=== PATIENT | male | born 1950 | race Caucasian/White ===

== ENCOUNTER 2019-06-12 16:21 | Inpatient (IN) | payer MEDICARE ==
[~2019-06-12] VITALS: Ht 167.6 cm; Wt 79.7 kg
[2019-06-12 16:53] LABS: Source, Urine Voided
[2019-06-12] MEDS ORDERED: VENL25 (16:53)
[2019-06-12] MEDS ORDERED: Lisinopril2.5 MG (16:53)
[2019-06-12] MEDS ORDERED: ALLO100 (16:53)
[2019-06-12] MEDS ORDERED: AMLO10 (16:53)
[2019-06-12] MEDS ORDERED: METO25ER (16:53)
[2019-06-12] MEDS ORDERED: BUSP5 (16:53)
[2019-06-12 16:54] LABS: Hematocrit 48.2 % (37.0-53.0); Hemoglobin 17.1 g/dL (13.5-17.5); Mean Corpuscular HGB 32.3 pg (26.0-34.0); Mean Corpuscular HGB Conc 35.5 g/dL (31.5-36.5); Mean Corpuscular Volume 91 fL (80-100); Mean Platelet Volume 9.5 fL (9.1-12.4); Platelet Count 477 K/mm3 (150-400); RDW Coefficient Variation 12.9 % (11.7-14.2); RDW Standard Deviation 42.3 fL (35.1-46.3); Red Blood Cell Count 5.29 M/mm3 (4.30-5.90); White Blood Cell Count 31.72 K/mm3 (4.00-11.30)
[2019-06-12 16:56] LABS: Bilirubin, Urine Neg (Neg); Blood, Urine 4+ (Neg); Glucose Qualitative, Urine 2+ (Neg); Ketones, Urine Neg (Neg); Leukocyte Esterase, Urine 1+ (Neg); Nitrite, Urine Neg (Neg); Protein, Urine 4+ (Neg); Urobilinogen, Urine NORM (Normal)
[2019-06-12 17:03] LABS: Appearance, Urine Clear (Clear); Color, Urine Yellow (P-Yellow)
[2019-06-12 17:05] LABS: Bacteria Mod /hpf; Squamous Epithelial Cells Rare /hpf (Few); Transitional Epithelial Cells Few /hpf (0-Rare)
[2019-06-12 17:08] LABS: International Normalized Ratio 1.07; Prothrombin Time Results 11.4 Sec (9.7-11.5)
[2019-06-12 17:19] LABS: BASOPHILS PERCENT MAN 0 % (0-2); EOSINOPHILS PERCENT MAN 0 % (0-6); LYMPHOCYTES PERCENT MAN 6 % (21-46); MONOCYTES ABSOLUTE MAN 2.53 K/mm3 (0.16-1.47); MONOCYTES PERCENT MAN 8 % (4-13); NEUTROPHILS ABSOLUTE MAN 27.27 K/mm3 (1.96-9.15); SEG NEUTROPHILS PERCENT MAN 86 % (41-73); TOTAL CELLS COUNTED 100
[2019-06-12 17:20] LABS: U Amphetamine Screen Not Detected; U Barbituate Screen Not Detected; U Benzodiazapine Screen Not Detected; U Buprenorphine Screen Not Detected; U Cannabinoids Screen DETECTED; U Cocaine Screen Not Detected; U Methadone Screen Not Detected; U Methamphetamine Screen Not Detected; U Opiates Screen Not Detected; U Oxycodone Screen Not Detected; U Phencyclidine Screen Not Detected; U Propoxyphene Screen Not Detected
[2019-06-12 17:26] LABS: Magnesium, Blood 1.6 mg/dL (1.6-2.4); Troponin I 0.386 ng/mL (0.000-0.040)
[2019-06-12 17:44] LABS: Alanine Aminotransfer (ALT/SGP 59 U/L (12-78); Albumin, Blood 4.3 g/dL (3.4-5.0); Alk Phos 107 U/L (50-136); Anion Gap 11 mmol/L (6-16); Aspartate Aminotrans (AST/SGOT 135 U/L (12-37); Bilirubin, Total 0.8 mg/dL (0.1-1.0); Blood Urea Nitrogen 40 mg/dL (8-24); Bun/Creatinine Ratio 35.7 (12.0-20.0); CO2, Blood 23 mmol/L (21-32); Chloride, Blood 96 mmol/L (98-108); Creatinine, Blood 1.12 mg/dL (0.60-1.20); Globulin, Blood 4.3 g/dL (2.2-4.0); Glomerular Filtration Rate >60 (60-); Glucose, Blood 313 mg/dL (70-99); Sodium, Blood 130 mmol/L (136-145); Total Protein, Blood 8.6 g/dL (6.4-8.2)
[2019-06-12 17:54] LABS: Ethanol (Alcohol), Blood, Med <3 mg/dL
[2019-06-12] MEDS ORDERED: Buspirone HCl7.5 MG PO (18:38)
[2019-06-12] MEDS ORDERED: ZYLOPRIM PO (18:38)
[2019-06-12] MEDS ORDERED: AMLODIPINE BESY10 MG PO (18:38)
[2019-06-12] MEDS ORDERED: METO100ER PO (18:39)
[2019-06-12] MEDS ORDERED: ZESTRIL40 M2 PO (18:39)
[2019-06-12] MEDS ORDERED: Metformin HCl1000 MG PO (18:40)
[2019-06-12] MEDS ORDERED: VENLAFAXINE HC225 MG PO (18:40)
[2019-06-12] MEDS ORDERED: Venlafaxine HCl75 MG PO (18:41)
[2019-06-12 18:59] LABS: Appearance, CSF Clear (Clear); Color, CSF No Color (No Color); RBC Count, CSF 0 /mm3 (0-0); WBC Count, CSF 1 /mm3 (0-5)
[2019-06-12 19:10] LABS: Glucose, CSF 159 mg/dL (40-70)
[2019-06-12 19:30] LABS: Monocytes, CSF 100 % (15-45)
[2019-06-12 19:38] LABS: WBC Count, CSF 1 /mm3 (0-5)
[2019-06-12 19:39] LABS: Appearance, CSF Clear (Clear); Color, CSF No Color (No Color); RBC Count, CSF 1 /mm3 (0-0)
[2019-06-12 20:10] LABS: Cryptococcus Neoformans/Gattii Not Detected (NOT DETECT); Enterovirus Not Detected (NOT DETECT); Escherichia Coli K1 Not Detected (NOT DETECT); Haemophilus Influenza Not Detected (NOT DETECT); Herpes Simplex Virus 1 Not Detected (NOT DETECT); Herpes Simplex Virus 2 Not Detected (NOT DETECT); Human Herpesvirus 6 Not Detected (NOT DETECT); Human Parechovirus Not Detected (NOT DETECT); Listeria Monocytogenes Not Detected (NOT DETECT); Neisseria Meningitidis Not Detected (NOT DETECT); Streptococcus Agalactiae Not Detected (NOT DETECT); Streptococcus Pneumoniae Not Detected (NOT DETECT); Varicella Zoster Virus Not Detected (NOT DETECT)
[2019-06-12 21:52] LABS: Free Thyroxine 0.94 ng/dL (0.70-1.60)
[2019-06-12 21:54] LABS: Salicylate 9.7 mg/dL (2.8-20.0)
[2019-06-12 21:55] LABS: Thyroid Stimulating Hormone 1.56 uIU/mL (0.360-4.800)
[2019-06-12 22:03] LABS: Acetaminophen, Random <2.0 ug/mL (10.0-30.0)
--- NOTE | 2019-06-13 01:07 | NUR ---
PT TO ICU 5 FROM ER AT 2215. PT ARRIVES UNRESPONSIVE WITH LOUD SNORE ON ATIVAN GTT AT 6 MG/HR. PT DIAPHORETIC WITH VISIBLE TREMORS. HR IN 140'S-150'S. PT TRANSFERRED TO ICU BED WITH SLIDER SHEET, PT CONTINUES TO BE UNRESPONSIVE, NO GAG/COUGH WITH YANKAUER. PUPILS 3 MM/SLUGGISH. PERFORMED JAW THRUST, PT'S SNORING DECREASED. ATIVAN GTT IMMEDIATELY PLACED ON STANDBY UPON ARRIVAL. SAT PATIENT UP TO 45+ DEGREES AND CONTACTED DR. SEGAL. DR. SEGAL AT BEDSIDE @2759 TO REASSESS PATIENT. ED DOCTOR REQUESTED TO ASSESS AND POSSIBLY INTUBATE PATIENT. PT HAD MINIMAL RESPONSE TO PAINFUL STIMULI AND HAD VERY MINIMAL GAG WITH TONGUE DEPRESSOR. ORDER TO HOLD OFF ADMINISTERING ANY MEDICATIONS AND CLOSELY MONITOR PT'S ABILITY TO MAINTAIN AIRWAY AND ETOH WITHDRAWAL SYMPTOMS. BED IN LOW LOCKED POSITION, CURTAIN/DOOR OPEN AND BED ALARM ON. SEE FULL ADMISSION ASSESSMENT
--- NOTE | 2019-06-13 02:34 | NUR ---
PT CONTINUES TO BE MINIMALLY RESPONSIVE TO PAINFUL STIMULI, NO RESPONSE TO VERBAL STIMULUS. BLOOD PRESSURE STABLE WITH SBP 110-115. REMAINS TACHYCARDIC WITH HR UP TO 150. CALL PLACED TO DR. SEGAL, ORDER FOR 5 MG METOPROLOL.
--- NOTE | 2019-06-13 03:08 | NUR ---
PT'S NOW IN NSR WITH HR 61. ORDER FOR 5 MG METOPROLOL IV Q4 FOR HR>120.
[2019-06-13 03:47] LABS: Hematocrit 43.7 % (37.0-53.0); Hemoglobin 15.1 g/dL (13.5-17.5); Mean Corpuscular HGB 32.2 pg (26.0-34.0); Mean Corpuscular HGB Conc 34.6 g/dL (31.5-36.5); Mean Corpuscular Volume 93 fL (80-100); Mean Platelet Volume 9.6 fL (9.1-12.4); Platelet Count 389 K/mm3 (150-400); RDW Coefficient Variation 13.2 % (11.7-14.2); RDW Standard Deviation 44.4 fL (35.1-46.3); Red Blood Cell Count 4.69 M/mm3 (4.30-5.90); White Blood Cell Count 27.26 K/mm3 (4.00-11.30)
[2019-06-13 04:10] LABS: Troponin I 0.361 ng/mL (0.000-0.040)
[2019-06-13 04:27] LABS: Alanine Aminotransfer (ALT/SGP 50 U/L (12-78); Albumin, Blood 3.5 g/dL (3.4-5.0); Alk Phos 81 U/L (50-136); Anion Gap 4 mmol/L (6-16); Aspartate Aminotrans (AST/SGOT 93 U/L (12-37); Bilirubin, Total 0.6 mg/dL (0.1-1.0); Blood Urea Nitrogen 35 mg/dL (8-24); Bun/Creatinine Ratio 32.7 (12.0-20.0); CO2, Blood 26 mmol/L (21-32); Calcium, Blood 11.8 mg/dL (8.5-10.1); Chloride, Blood 107 mmol/L (98-108); Creatinine, Blood 1.07 mg/dL (0.60-1.20); Globulin, Blood 3.4 g/dL (2.2-4.0); Glomerular Filtration Rate >60 (60-); Glucose, Blood 188 mg/dL (70-99); Sodium, Blood 137 mmol/L (136-145); Total Protein, Blood 6.9 g/dL (6.4-8.2)
--- NOTE | 2019-06-13 06:10 | NUR ---
SHIFT SUMMARY PT MOVES ALL EXTREMETIES, SLIGHT WITHDRAW FROM PAINFUL STIMULUS, NO RESPONSE TO VERBAL STIMULUS. PT NOT DIAPHORETIC AT THIS TIME, VISIBLY TREMULOUS. CIWA 3. HR CURRENTLY SINUS TACH 100-115. PT TREATED WITH HYDRALAZINE FOR HYPERTENSION PER EMAR. WILL REPORT TO DAYSHIFT NURSE.
--- NOTE | 2019-06-13 17:21 | NUR ---
SHIFT SUMMARY PT HAS REMAINED SEDATED WITH PRECEDEX SINCE BEGINNING OF THE SHIFT. PRECEDEX TITRATED BETWEEN 0.5-0.7 MCG/KG/MIN. PT CONTINUES TO MOAN OUT TO NOXIOUS STIMULI AND VERBAL STIMULI, BUT IS UNABLE TO SPEAK IN FULL WORDS. PT IS RESTLESS IN BED. VITAL SIGNS STABLE, PT ON ROOM AIR. NS INFUSING AT 100 ML/HR. SOUSA IN PLACE WITH BRIGHT YELLOW URINE OUTPUT NOTED. WILL CONTINUE TO MONITOR AND REPORT OFF TO ONCOMING RN.
--- NOTE | 2019-06-13 21:30 | NUR ---
ASSUMPTION OF CARE PT SLEEPING IN BED, AROUSES TO VERBAL STIMULI, DOES NOT OPEN EYES, SAYS "WHAT?" TO NAME, DOES NOT ANSWER QUESTIONS/MUMBLES INCOHERENTLY. PT VERY AGITATED WITH NURSING CARE, PT OTHERWISE RESTLESS IN BED, AT TIMES PULLING AT LINES/TUBES AND PLACING HANDS IN ATTENDS, BILAT WRIST RESTRAINTS PLACED TO PROTECT TUBES/LINES/CORDS. PT MAINTAIN O2 SATURATIONS>92% ON RA, MONITOR SHOWS SINUS RHYTHM WITH HR 80-90'S. PT MOVES ALL EXTREMETIES AND REPOSITIONS SELF IN BED. SOUSA REMAINS IN PLACE AND DRAINING YELLOW URINE. CIWA ASSESSMENTS DIFFICULT DUE TO PTS MENTATION, PT WITH TREMORS, PERSPERATION, CONFUSION, AND AGITATION, PRN ATIVAL PROVIDED AND PRECEDEX INFUSING AT 0.7 (SEE FLOWSHEET).
--- NOTE | 2019-06-13 23:54 | NUR ---
PT WITH INCREASED AGITATION, KICKING LEGS OFF BED, GETTING FEET CAUGHT IN SOUSA, RISK FOR PULLING SOUSA OUT, PT VERY RESISTANT TO NURSING CARE. ORDER FOR SOFT RESTRAINTS x4 EXTREMETIES PLACED. ATIVAN PROVIDED (SEE MAR)
[2019-06-14 03:27] LABS: BASOPHILS ABSOLUTE AUTO 0.07 K/mm3 (0.00-0.23); BASOPHILS PERCENT AUTO 0 % (0-2); EOSINOPHILS ABSOLUTE AUTO 0.06 K/mm3 (0.00-0.68); EOSINOPHILS PERCENT AUTO 0 % (0-6); Hematocrit 38.9 % (37.0-53.0); Hemoglobin 13.3 g/dL (13.5-17.5); IMMATURE GRAN ABSOLUTE AUTO 0.07 K/mm3 (0.00-0.10); IMMATURE GRAN PERCENT AUTO 0 % (0-1); LYMPHOCYTES ABSOLUTE AUTO 2.11 K/mm3 (0.84-5.20); LYMPHOCYTES PERCENT AUTO 11 % (21-46); MONOCYTES ABSOLUTE AUTO 2.14 K/mm3 (0.16-1.47); MONOCYTES PERCENT AUTO 12 % (4-13); Mean Corpuscular HGB Conc 34.2 g/dL (31.5-36.5); Mean Corpuscular Volume 94 fL (80-100); Mean Platelet Volume 9.5 fL (9.1-12.4); NEUTROPHILS ABSOLUTE AUTO 14.21 K/mm3 (1.96-9.15); NEUTROPHILS PERCENT AUTO 76 % (41-73); Platelet Count 334 K/mm3 (150-400); RDW Coefficient Variation 13.4 % (11.7-14.2); Red Blood Cell Count 4.15 M/mm3 (4.30-5.90); White Blood Cell Count 18.66 K/mm3 (4.00-11.30)
[2019-06-14 03:58] LABS: CPK Creatine Kinase 1052 U/L (39-308)
[2019-06-14 03:59] LABS: Albumin, Blood 3.3 g/dL (3.4-5.0); Anion Gap 5 mmol/L (6-16); Blood Urea Nitrogen 29 mg/dL (8-24); Bun/Creatinine Ratio 29.4 (12.0-20.0); CO2, Blood 23 mmol/L (21-32); Calcium, Blood 10.8 mg/dL (8.5-10.1); Chloride, Blood 119 mmol/L (98-108); Creatinine, Blood 0.99 mg/dL (0.60-1.20); Glomerular Filtration Rate >60 (60-); Glucose, Blood 124 mg/dL (70-99); Phosphorus, Blood 2.1 mg/dL (2.5-4.9); Potassium, Blood 3.1 mmol/L (3.5-5.5); Sodium, Blood 147 mmol/L (136-145)
[2019-06-14 06:00] LABS: PCO2 Arterial 46.7 mmHg (35-45); PO2 Arterial 104 mmHg (80-100)
--- NOTE | 2019-06-14 07:15 | NUR ---
ASSUMED CARE BEDSIDE REPORT RECIEVED. PT IS INTUBATED AND SEDATED. VENT SETTINGS AC 14, TV 400, PEEP 5, FIO2 70%. PT IS SEDATED WITH PROPOFOL AT 20 MCG/KG/MIN AND PRECEDEX AT 0.7 MCG/KG/MIN. PT IS HYPOTENSIVE WITH SBP 60'S. PRECEDEX PLACED ON STANDBY AT THIS TIME. OGT PLACED AT THIS TIME AND PLACED TO LIS. BILE OUTPUT NOTED. SOUSA IN PLACE DRAINING YELLOW URINE. SBW RESTRAINTS IN PLACE. WILL CONTINUE TO MONITOR.
--- NOTE | 2019-06-14 07:16 | NUR ---
RESPIRATORY ARREST/SHIFT SUMMARY CALL PALCED TO DR SEGAL @ APPROX 0430 REGARDING PTS CONTINUED RESTLESS AND AGITATION ON 0.7 PRECEDEX AND PRN ATIVAN Q2H, MORNING LABS SHOWED LOW POTASSIUM AND PHOSPHOROUS, HIGH SODIUM, SEE NEW ORDERS. PRECEDEX TITRATED TO 1.0. THIS RN TO PTS ROOM, O2 SATS ALARMING IN THE 80'S BUT WITH POOR WAVEFORM, WOB INCREASED, HR INCREASED TO 140'S AND LIPS AND FACE BLUE/PURPLE DISCOLORATION, PULSES PRESENT, BMV INITIATED @ 0457, CODE ALARM PULLED, PRECEDEX PLACED ON SB, CODE TEAM ARRIVED AND PT INTUBATED @ 0504, CXR ORDERED AND COMPLETED (SEE CODE BLUE SHEET IN CHART) 7.5 ETT, 25 CM AT THE TEETH, VENT SET TO AC 14/400/5/70%, MODERATE AMOUNT OF DARK BROWN SECRETIONS FROM ETT. PRECEDEX RESTARTED @ 0.7 AND PROPOFOL @ 20 (SEE FLOWSHEET).
--- NOTE | 2019-06-14 10:17 | NUR ---
VENT SETTING CHANGE 0940 DR NEGRO CHANGED PT TO PS 10/5, FIO2 40%. PT TOLERATING WELL. PT NOT RESPONDING TO COMMANDS, BUT DOES WITHDRAW TO NOXIOUS STIMULI. BP IMPROVED AT THIS TIME. WILL CONTINUE TO MONITOR.
--- NOTE | 2019-06-14 10:50 | NUR ---
AC PT RESTLESS AND THRASHING IN BED. PROPOFOL INCREASED TO 30 MCG/KG/MIN AND PT CHANGED BACK TO ASSIST CONTROL WITH PREVIOUS SETTINGS.
--- NOTE | 2019-06-14 18:13 | NUR ---
SHIFT SUMMARY PT REMAINS INTUBATED AND SEDATED. PT BP AND LEVEL OF SEDATION HAS BEEN LABILE THROUHGHOUT THE SHIFT. PT QUICKLY ESCALATES FROM RESTING QUIETLY TO THRASHING AROUND IN BED WITH MINOR TITRATIONS OF PRECEDEX AND PROPOFOL. SBP HAS RANGED FROM 60-180'S THROUGHOUT THE DAY. DR NEGRO HAS BEEN AWARE OF VS TRENDS. PT CURRENTLY SEDATED WITH PRECEDEX AT 0.7 MCG/KG/MIN AND PROPOFOL AT 30 MCG/KG/MIN. D5 1/2 NS INFUSING AT 75 ML/HR AND NS TKO. VENT SETTINGS AC 16, TV 400, PEEP 5, FIO2 35%. OGT IN PLACE WITH TF AT 20 ML/HR. SOUSA IN PLACE WITH YELLOW URINE OUTPUT NOTED. SBW RESTRAINTS IN PLACE. WILL CONTINUE TO MONITOR AND REPORT OFF TO ONCOMING RN.
[2019-06-14 20:41] LABS: Vancomycin, Random 9.7 ug/mL
--- NOTE | 2019-06-14 21:00 | NUR ---
ASSUMPTION OF CARE ASSUMED CARE OF PT @ 1900, PT INTUBATED AND SEDATION, WITHDRAWS FROM PAINFUL STIMULI, RESTLESS IN BED, MOVING ALL EXTREMETIES, DOES NOT FOLLOW COMMANDS. VENT SET TO AC 16/400/5/35%, RR 20'S, TV 400'S, SMALL AMOUNT OF CLEAR TO WHITE SPUTUM FROM ETT. PROPOFOL AND PRECEDEX FREQUENTLY TITRATED TO ACHEIVE ADEQUATE SEDATION VS TOLERATED, HR AND BP VERY LABILE (SEE FLOWSHEET AND VITAL SIGNS) TF IN PLACE INF 20ml/hr. SOUSA IN PLACE DRAINING YELLOW URINE.
[2019-06-15 03:38] LABS: Calcium, Blood 9.7 mg/dL (8.5-10.1); Creatinine, Blood 1.29 mg/dL (0.60-1.20); Magnesium, Blood 1.8 mg/dL (1.6-2.4); Phosphorus, Blood 2.6 mg/dL (2.5-4.9); Potassium, Blood 3.4 mmol/L (3.5-5.5)
--- NOTE | 2019-06-15 07:38 | NUR ---
SHIFT SUMMARY PT REMAINS INTUBATED AND SEDATED, ADEQUATE SEDATION DIFFICULT TO ACHEIVE DUE TO VS, VENT SET TO AC 16/400/5/35%. PT WITHDRAWS FROM PAINFUL STIMULI, BECOMES VERY AGITATED WITH NURSING CARE. MONITOR SHOWS VERY LABILE HR OF 49-70'S, LENA BURKS NOTED THIS SHIFT (SEE RHYTHM STRIP) BP VERY LABILE WITH SBP 80-190'S WITH MAPS 50'S-120'S. DOPAMINE STARTED THIS SHIFT FOR HR AND BP SUPPORT, CURRENTLY ON STAND BY. TF INFUSING @ 30ml/hr, LOW RESIDUALS, 1 BM THIS SHIFT. SOUSA IN PLACE DRAINING YELLOW URINE. CALL PLACED TO DR NEGRO THIS SHIFT REGARDING SODIUM LEVEL, D5 1/2NS INCREASED TO 100ml/hr, UPDATED DR NEGRO ON LOW BP AND HR, DOPAMINE ORDERED. POTASSIUM 3.4 WITH MORNING LABS, 40meq OF KCL ORDERED PER ELECTROLYTE PROTOCOL.
--- NOTE | 2019-06-15 08:29 | NUR ---
CARE ASSUMED REPORT RECEIVED, CARE ASSUMED AT 0700 FROM DUNCAN ORTEZ. PT INTUBATED, SEDATED WITH PROPOFOL AND PRECEDEX, BUT AGITATED, MOVING HEAD BACK AND FORTH, MOVING ALL EXTREMITIES AROUND IN BED. BILAT WRIST RESTRAINTS FOR SAFETY. IV'S RED AND LEAKING, SEE VASCULAR ACCESS ASSESSMENT. PT NOT REQUIRING VASOPRESSORS AT THIS TIME, BUT DID EARLIER THIS MORNING. BP LABILE PER APPLICATIONS CONSULTANT RN. HR ALSO LABILE. INITIAL ASSESSMENT REVEALED SINUS RATE IN 70'S, BUT AT THIS TIME CRYS WITH FREQUENT PVC'S. PRECEDEX OFF FOR THIS REASON. SPOKE WITH DR. REGAN REGARDING LABILE HR, BP AND VASCULAR ACCESS. ORDER FOR PICC LINE. SPOKE WITH PT'S NEXT OF KIN LISTED, HEMALATHA. PROVIDED WITH UPDATED. PER HEMALATHA, HE IS NOT MEDICAL POWER OF BARREL LEVELER. CONSENT FOR PICC PLACEMENT MEDICAL NECESSESITY. DUNCAN PATINO TO BEDSIDE TO PLACE PICC LINE. SINCE ASSUMING CARE, PROPOFOL TITRATED UP AND PT ADEQUATELY SEDATED AT THIS TIME. PT HAD BOWEL MOVEMENT, PT TOLERATED ADL WELL.
--- NOTE | 2019-06-15 09:28 | NUR ---
UPDATE PICC LINE INSERTED AND VERIFIED PER DUNCAN PATINO. DR. REGAN TO BEDSIDE FOR ASSESSMENT. DISCUSSED HR/BP. PER DR. REGAN, TITRATE PROPOFOL DOWN AND TURN PRECEDEX BACK ON. DOPAMIN CONTINUES TO BE ON STANDBY IF NEEDED.
--- NOTE | 2019-06-15 15:20 | NUR ---
SEDATION VACATION DR. REGAN IN AND OUT THROUGHOUT MORNING AND AFTERNOON, REQUESTING SEDATION BE CHANGED. SEE FLOWSHEET. AT ONE POINT PT OFF PROPOFOL, ON 1.4 PRECEDEX AND GETTING IV PUSHES OF LORAZEPAM. THROUGHOUT PROCESS PT HAS BEEN INTERMITTENTLY AGITATED, PULLING ON RESTRAINTS, SCOOTING DOWN IN BED, SHAKING HEAD BACK AND FORTH, ATTEMPTING TO REACH FOR TUBE. PT NOT FOLLOWING ANY COMMANDS. OPENS EYES A FEW TIMES BUT NOT TRACKING AND DOES NOT OPEN THEM ON COMMAND. THIS AFTERNOON, PER DR. REGAN, OK TO RESEDATE WITH PROPOFOL AND ATTEMPTED SEDATION VACATION AGAIN TOMORROW.
--- NOTE | 2019-06-15 19:02 | NUR ---
SUMMARY SINCE RE-SEDATING PT, PT HAS BEEN CALM, TOLERATING ADL'S. CONTINUES TO COUGH AND REACH FOR TUBE TURNING TURNS, BUT NOT THRASHING HEAD, ARM AND LEGS AROUND HE WAS PREVIOUSLY. BP BORDERLINE HYPOTENSIVE, BUT MAPS MAINTAINING 65 AND GREATER. SINCE RESEDATING, HR HAS BEEN 40'S-50'S. TITRATED PRECEDEX DOWN TO MANAGE THIS. PT LEFT ON PRESSURE SUPPORT PER DR. REGAN ORDER, TIDAL VOLUMES MAINTAINGING IN 400'S, RR 20'S. PT NOT FOLLOWING ANY COMMANDS FOR DURATION OF SHIFT. ABD SOFT, HYPOACTIVE BOWEL SOUNDS. TOLERATING TUBE FEEDING WITH MINIMAL RESIDUALS. BOWEL MOVEMENT TODAY. GOOD URINE OUTPUT FROM SOUSA. BILAT WRIST RESTRAINTS FOR SAFETY. REPORT TO DUNCAN COCHRAN TO ASSUME CARE AT THIS TIME.
--- NOTE | 2019-06-15 20:44 | NUR ---
ASSUMED PT CARE FROM DUNCAN FABIAN AT 1915 PT INTUBATED AND SEDATED. PROPOFOL AT 40MCG/KG/MIN. PRECEDEX AT 0.5 MCG/KG/HR. VENT SETTINGS: SPONTANEOUS WITH PRESSURE SUPPORT 5/5; FIO2 21%. HR 40'S WITH STABLE BP'S; SEE FLOWSHEET. PIVOT 1.5 INFUSING AT GOAL OF 40CC/HR. SOUSA CATHETER IS PATENT AND DRAINING CLEAR, YELLOW URINE TO GRAVITY. UNABLE TO ASSESS CIWA'S AT THIS TIME D/T INTUBATION/SEDATION. PER REPORT PT WAS AGITATED MOST OF DAY AND IS CURRENTLY COMFORTABLE AND RESTING QUIETLY. WILL PERFORM SEDATION VACATION TOWARD END OF SHIFT; HOWEVER, WILL TITRATE SEDATIVE MEDICATIONS ACCORDING TO RIKERS SEDATION-AGITATION SCALE. BEDSIDE REPORT GIVEN. PT APPEARS COMFORTABLE AT THIS TIME.
--- NOTE | 2019-06-15 23:47 | NUR ---
REASSESSMENT TITRATED PROPOFOL FROM 40MCG/KG/MIN SLOWLY TO 30MCG/KG/MIN. PT REMAINED QUIET AND APPEARED COMFORTABLE UNTIL DISTURBED FOR BED BATH. PT BECAME VERY AGITATED. THRASHING HEAD BACK AND FORTH IN BED. OPENED EYES TO VERBAL STIMULI; HOWEVER, DID NOT FOLLOW ANY COMMANDS. NOTED TO WITHDRAWAL FROM ANY NOXIOUS STIMULI. MOVING ALL EXTREMITIES IN BED. ATTEMPTED TO DIM LIGHTS IN ROOM AND DECREASE STIMULI; HOWEVER, PT CONTINUES TO THRASH HEAD BACK AND FORTH WITH INCREASED BP AND HR FROM 40'S TO 50'S. TITRATED PROPOFOL BACK TO 35MCG/KG/MIN.
[2019-06-16 03:25] LABS: BASOPHILS ABSOLUTE AUTO 0.07 K/mm3 (0.00-0.23); BASOPHILS PERCENT AUTO 1 % (0-2); EOSINOPHILS ABSOLUTE AUTO 0.43 K/mm3 (0.00-0.68); EOSINOPHILS PERCENT AUTO 5 % (0-6); Hematocrit 32.1 % (37.0-53.0); Hemoglobin 10.6 g/dL (13.5-17.5); IMMATURE GRAN ABSOLUTE AUTO 0.04 K/mm3 (0.00-0.10); IMMATURE GRAN PERCENT AUTO 0 % (0-1); LYMPHOCYTES ABSOLUTE AUTO 2.15 K/mm3 (0.84-5.20); LYMPHOCYTES PERCENT AUTO 24 % (21-46); MONOCYTES ABSOLUTE AUTO 0.87 K/mm3 (0.16-1.47); MONOCYTES PERCENT AUTO 10 % (4-13); Mean Corpuscular HGB 32.4 pg (26.0-34.0); NEUTROPHILS PERCENT AUTO 61 % (41-73); Platelet Count 278 K/mm3 (150-400); RDW Coefficient Variation 13.8 % (11.7-14.2); RDW Standard Deviation 50.1 fL (35.1-46.3); Red Blood Cell Count 3.27 M/mm3 (4.30-5.90); White Blood Cell Count 9.16 K/mm3 (4.00-11.30)
[2019-06-16 03:26] LABS: Mean Corpuscular Volume 98 fL (80-100)
[2019-06-16 03:40] LABS: Albumin, Blood 2.5 g/dL (3.4-5.0); Anion Gap 4 mmol/L (6-16); Blood Urea Nitrogen 28 mg/dL (8-24); Bun/Creatinine Ratio 29.4 (12.0-20.0); CO2, Blood 22 mmol/L (21-32); Calcium, Blood 8.8 mg/dL (8.5-10.1); Chloride, Blood 126 mmol/L (98-108); Creatinine, Blood 0.95 mg/dL (0.60-1.20); Glomerular Filtration Rate >60 (60-); Glucose, Blood 124 mg/dL (70-99); Magnesium, Blood 1.9 mg/dL (1.6-2.4); Phosphorus, Blood 2.1 mg/dL (2.5-4.9); Potassium, Blood 3.2 mmol/L (3.5-5.5); Sodium, Blood 152 mmol/L (136-145)
--- NOTE | 2019-06-16 07:25 | NUR ---
END OF SHIFT SUMMARY PT HAS REMAINED ON SPONTANEOUS WITH PRESSURE SUPPORT 5/5; FIO2 21%. TITRATED PROPOFOL DOWN TO 25MCG/KG/MIN AND PRECEDEX TO 1.4 MCG/KG/HR. HR REMAINS LOW 40'S; HOWEVER, BP'S STABLE. SEE FLOWSHEET. ATTEMPTED SEDATION VACATION WITH TURNING PROPOFOL DOWN TO 20MCG/KG/MIN; HOWEVER, PT THRASHING HEAD BACK AND FORTH IN BED, WOULD NOT OPEN EYES TO VERBAL STIMULI. HOWEVER, WHEN ASSESSING PUPILS, PT TRACKED HIS EYES TO LOCATE ME. DID NOT FOLLOW ANY COMMANDS. CONTINUED TO MOVE ALL EXTREMITIES AND THRASH HEAD BACK AND FORTH IN BED. TITRATED PROPOFOL BACK TO 25MCG/KG/MIN. PT APPEARS COMFORTABLE AT THIS TIME. BP'S TEND TO FLUCTUATE WITH AGITATION AND SEDATION, BUT REMAIN STABLE. DOPAMINE REMAINED ON STANDBY T/O SHIFT. PT NOTED TO BE BRADYCARDIC MOST OF SHIFT; HOWEVER, HR REMAINED ABOVE 40. LUNG SOUNDS HAVE REMAINED CLEAR T/O ALL LOBES; MODERATE AMOUNTS OF THIN, CLEAR SECRETIONS SUCTIONED FROM ETT. PIVOT 1.5 INFUSING AT GOAL OF 40CC/HR; MINIMAL RESIDUALS NOTED. SOUSA CATH REMAINS PATENT AND DRAINING CLEAR YELLOW URINE TO GRAVITY. REPORT GIVEN TO DUNCAN NIELSEN.
--- NOTE | 2019-06-16 08:35 | NUR ---
ASSESSMENT- PT RESTLESS, KICKING LEG OFF BED, REPOSITIONED, AGITATED WITH ANY STIMULUS. PRECEDEX GTT AT 1.4 MCG/KG/HR, PROPOFOL AT 35 MCG/KG/MIN. REPOSITIONED, TURNED AND NOW QUIET AFTER REPOSITIONING. PERRL, ORALLY INTUBATED, TOLERATING VENT-SPONTANEOUS SETTINGS, PS 5 PEEP 5 TIDAL VOLUMES 400'S. LUNGS CLEAR, SUCTIONED SCANT CLEAR SECRETIONS. APICAL REGULAR, SINUS CRYS, DID HAVE RUN OF BIJEMINY-RESOLVED SPONTANEOUSLY. BP STABLE. EXTUBATION RISK-DOESN'T FOLLOW COMMANDS, DOES MOVE ALL EXTREMITIES. BILATERAL WRIST RESTRAINTS ON. D5 1/2 NS AT 100 CC/HR. MAGNESIUM REPLACEMENT STARTED. KPHOS TO START. ABDOMEN SOFT, TUBE FEEDING VIA OGT PIVOT 1.5 AT GOAL 40 CC/HR, RESIDUAL 100 CC REPLACED. FREE WATER 300 CC/Q 6HR. SODIUM ELEVATED. UO VIA SOUSA ADEQUATE. LASIX ORDERED POSITIVE FLUID BALANCE. SCDS APPLIED PER ORDER. BRUISED AREA AND SKIN TEAR LEFT WRIST-MEPILEX APPLIED. MEPILEX ON COCCYX INTACT.
--- NOTE | 2019-06-16 09:55 | NUR ---
DR. REGAN HERE-ASSESSED PT. PROPOFOL OFF, NOW RESTLESS AND AGITATED. RX WITH IV VALIUM. STILL MOVING HEAD SIDE TO SIDE. DID LOOK AT PHYSICIAN WHEN ASKED, QUESTION FOLLOW SOME COMMANDS. PLANS TO EXTUBATE. CONTINUE PRECEDEX.
--- NOTE | 2019-06-16 10:12 | NUR ---
TUBE FEED OFF, RESIDUAL 10 CC DISCARDED. EXTUBATED TO NASAL CANNULA WITHOUT PROBLEMS. SATURATIONS STABLE HEARTRATE 50'S. RESPIRATIONS UNLABORED. LUNGS CLEAR POST EXTUBATION. NOT PULLING AT LINES. WRIST RESTRAINTS OFF
--- NOTE | 2019-06-16 10:45 | NUR ---
DR. REGAN AT BEDSIDE. PT ABLE TO ANSWER QUESTIONS REGARDING HIS NAME, DISORIENTED TO PLACE AND DATE. COOPERATIVE BUT RESTLESS IN BED. CIWA 7
--- NOTE | 2019-06-16 11:57 | NUR ---
PT REMAINS RESTLESS BUT COOPERATIVE. REPOSITIONED FREQUENTLY. DR. REGAN HERE-UPDATED. RX FOR HYPERTENSION
--- NOTE | 2019-06-16 12:58 | NUR ---
INCREASING RESTLESSNESS, ATTEMPT TO HIT STAFF. NOTIFIED PHYSICIAN. RX WITH ATIVAN. MULTIPLE REASSURANCES TO PT. REPOSITIONED FOR COMFORT. CLOSELY MONITORED WITH RN AT BEDSIDE. BED ALARM ON
--- NOTE | 2019-06-16 13:18 | NUR ---
PT LESS AGITATED WITH ATIVAN BUT FALL RISK, SWINGING LEGS OUT OF BED. ADA ON, BED ALARM. HYPERTENSIVE, SR 80'S.
--- NOTE | 2019-06-16 14:39 | NUR ---
PT STILL VERY RESTLESS BUT NOT AGGRESSIVE. CAN FOLLOW SOME DIRECTIONS. POSITIONED TO SIT UP IN BED, SWALLOW EVAL-DID WELL. TOOK JUICE AND JELLO WITH ASSIST. DIURESING FROM LASIX
--- NOTE | 2019-06-16 17:04 | NUR ---
POTASSIUM LEVEL 3.2, REPLACEMENT STARTED. STILL RESTLESS, RX WITH ATIVAN, ADA INTACT. ABLE TO FOLLOW SOME DIRECTIONS. CONSTANTLY MOVING LEGS. BP ELEVATED, NSR. UO GOOD VIA SOUSA
--- NOTE | 2019-06-16 18:12 | NUR ---
BP REMAINS ELEVATED-NOTIFIED DR. REGAN-SEE ORDERS. PT AWAKE, REMAINS RESTLESS IN BED.
--- NOTE | 2019-06-16 19:00 | NUR ---
REPOSITIONED PT TO SIT UP IN BED. ABLE TO TAKE BP MEDS WITH ASSISTANCE. NSR. MONITORING BP, FALL PRECAUTIONS, VEST SECURE. CONTINUE TO MONITOR CLOSELY
--- NOTE | 2019-06-16 19:30 | NUR ---
PATIENT AWAKES TO VERBAL STIMULI, OPENS EYES. SPEECH SLURRED DUE TO DRY MOUTH, ORAL CARE PRN. A&O TO SELF ONLY. VERY DISORIENTED/CONFUSION NOTED BUT COOPERATIVE WITH CARE. ADA VEST RESTRAINT IN PLACE DUE TO FALL RISK. PRECEDEX GTT INFUSING WITH VALIUM AND ATIVAN ORDERED PRN. WILL TITRATE PRECEDEX DOWN IF TOLERATED. VERY RESTLESS IN BED MOVING ALL EXT'S WELL. DENIES PAIN OR SOB. HR 70'S, SINUS RHYTHM WITH OCCASIONAL BIJEMINY NOTED. bLOOD PRESSURES FROM 150-190'S; DAY SHIFT STARTED PO BP MEDS. CONTINUE TO MONITOR AND TX PRN. POSITION IN 90 DEGREES IN BED TO DRINK WATER FROM STRAW, TOLERATED WELL WITH OCCASIONAL COUGH IF TOOK TO MUCH WATER IN. SOUSA PATENT AND PULLING AT SOUSA FREQUENTLY NOTED, RE-EDUCATED TO NOT PULL ON SOUSA DUE TO IT CAN CAUSE BLEEDING FROM AREA. CONTINUE TO MONITOR CLOSELY AND TX PRN.
--- NOTE | 2019-06-17 00:30 | NUR ---
PATIENT CONTINUES TO BE VERY RESTLESS IN BED WITH VALIUM DOSE GIVEN AND ATTEMPTED TO TITRATE PRECEDEX DOWN ALONG WITH ATIVAN IV GIVEN. TITRATED PRECEDEX BACK TO MAX DOSE 1.4MCG/KG/HR. CALLED TO DR GONZALES REGARDING HIGH BP'S AND UPDATED ON RESTLESSNESS. NEW ORDERS TO TX BP WITH LABETOLOL 20MG IV Q4 AND JUST CONTINUE WITH PRECEDEX, VALIUM AND ATIVAN PER ORDERS. CHARGE NURSE MARIAH AGUILAR, ATTEMPTED TO REPOSITION SOUSA CATH DUE TO PATIENT C/O NEEDING TO PEE BUT IT WAS CLOTTED; SOUSA DC'D AND ATTENDS PLACE. CONTINUE TO MONITOR AND TX PRN.
--- NOTE | 2019-06-17 01:39 | NUR ---
LABETOLOL 20MG IVP GIVEN PER ORDERS WITH GOOD RESULTS. SBP'S FROM 190-200'S TO 160'S. CONTINUE TO MONITOR CLOSELY.
--- NOTE | 2019-06-17 03:11 | NUR ---
RECHECK BLADDER POSTED 2 HRS FROM SOUSA BEING DC'D, >500CC NOTED FROM BLADDER SCAN. REINSTERTED 16FR COUDE SOUSA. CONTINUE TO MONITOR AND TX PRN.
[2019-06-17 03:54] LABS: BASOPHILS PERCENT AUTO 1 % (0-2); EOSINOPHILS PERCENT AUTO 2 % (0-6); Hematocrit 37.6 % (37.0-53.0); Hemoglobin 12.9 g/dL (13.5-17.5); IMMATURE GRAN ABSOLUTE AUTO 0.05 K/mm3 (0.00-0.10); IMMATURE GRAN PERCENT AUTO 0 % (0-1); LYMPHOCYTES ABSOLUTE AUTO 1.91 K/mm3 (0.84-5.20); LYMPHOCYTES PERCENT AUTO 15 % (21-46); MONOCYTES PERCENT AUTO 10 % (4-13); Mean Corpuscular HGB 32.5 pg (26.0-34.0); Mean Corpuscular HGB Conc 34.3 g/dL (31.5-36.5); Mean Platelet Volume 9.9 fL (9.1-12.4); NEUTROPHILS ABSOLUTE AUTO 9.02 K/mm3 (1.96-9.15); NEUTROPHILS PERCENT AUTO 72 % (41-73); Platelet Count 334 K/mm3 (150-400); RDW Coefficient Variation 13.6 % (11.7-14.2); RDW Standard Deviation 47.3 fL (35.1-46.3); Red Blood Cell Count 3.97 M/mm3 (4.30-5.90); White Blood Cell Count 12.58 K/mm3 (4.00-11.30)
[2019-06-17 03:56] LABS: Mean Corpuscular Volume 95 fL (80-100)
[2019-06-17 04:12] LABS: Anion Gap 7 mmol/L (6-16); Blood Urea Nitrogen 18 mg/dL (8-24); Bun/Creatinine Ratio 19.1 (12.0-20.0); CO2, Blood 26 mmol/L (21-32); Chloride, Blood 122 mmol/L (98-108); Creatinine, Blood 0.94 mg/dL (0.60-1.20); Glomerular Filtration Rate >60 (60-); Glucose, Blood 146 mg/dL (70-99); Potassium, Blood 3.1 mmol/L (3.5-5.5); Sodium, Blood 155 mmol/L (136-145)
--- NOTE | 2019-06-17 04:48 | NUR ---
ABRAHAM LION NOTIFIED: RE: PT ON E' PROTOCOL AND NO PHOS ORDERED FOR THIS AM. NEW ORDERS TO ADD PHOS TO LAB AND APPLY E' BASED ON THAT RESULT. ELEVATED NA+ CAN BE ADDRESSED IN AM.
[2019-06-17 05:03] LABS: Phosphorus, Blood 2.8 mg/dL (2.5-4.9)
--- NOTE | 2019-06-17 06:26 | NUR ---
SHIFT SUMMARY PATIENT REMAINS ORIENTED TO SELF ONLY BUT ABLE TO ANSWER YES OR NO TO VERY SIMPLE QUESTIONS R/T CARE NEEDS. CONTINUES TO BE IN ADA VEST RESTRAINT DUE TO FALL RISK AND ETOH W/D. VERY RESTLESS IN BED AND HAVING TO REPOSITION FREQUENTLY IN BED. MOVES ALL EXT'S WELL. COOPERATIVE WITH CARE. PRECEDEX GTT INFUSING AT MAX RATE 1.4MCG/KG/HR WITH VALIUM AND ATIVAN GIVEN PRN. RHYTHM SINUS WITH OCCASIONAL BIGEMINY NOTED, BP HYPERTENSIVE AT BEGINNING OF SHIFT WITH NEW MED ORDER, LABETOLOL 20MG IV PRN WITH GOOD RESULTS. ABLE TO TAKE ORAL INTAKE WELL WITH STRAW. SOUSA CATH CHANGED DUE TO PATIENT C/O OF SOUSA DISCOMFORT. NO OTHER CHANGES NOTED, WILL REPORT OFF TO DAY SHIFT.
--- NOTE | 2019-06-17 11:33 | NUR ---
ASSUMED CARE OF PT AT 0700. REPORT FROM AUSTYN SONG. PT RESPONSES TO VERBAL STIMULI. MAKES EYE CONTACT, CONFUSED CONVERSATION. ORIENTED TO SELF ONLY. ONCE STATES THAT HE IS IN HOSPITAL. SLURRED SPEECH, DIFFICULT TO UNDERSTAND. MAEW. CABALLERO IN PLACE FOR PT SAFETY. PT RESTLESS IN BED. PRECEDEX INFUSING AT START OF SHIFT AT 1.4 MCG/KG/HR. TITRATED OFF PER DR REGAN, MEDICATED FOR ETOH WITHDRAWLS c ATIVAN AND LIBRIUM. HTN NOTED. NSR c HIMA. LUNGS CLEAR. WILL CONTINUE TO MONITOR.
--- NOTE | 2019-06-17 14:25 | NUR ---
SHIFT SUMMARY FROM ICU. PT TRANSFERRED TO PCU AT 1425. REPORT TO DIRECTOR [facility]. PRECEDEX D/C'D THIS SHIFT. NO CHANGE IN PT MENTATION OR RESTLESSNESS. CIWA RANGE FROM 9-12 THIS SHIFT. PT CONTINUES TO BE A&O X1. INCOHERANT SPEECH. FOLLOWS SIMPLE COMMANDS. RESTLESS AND FIDGITING IN BED. MOVES TO END OF BED. PT DOES NOT APPEAR TO BE ATTEMPTING TO GET OUT OF BED. ATTEMPTS TO HELP c REPOSITIONING. ADA IN PLACE ENTIRE SHIFT. PT ABLE TO SWALLOW s DIFFICULTIES. REQUESTS WATER FREQUENTLY. ENCOURAGE WATER INTAKE FOR NA LEVEL. PT HR INCREASED POST PRECEDEX D'C. RANGING FROM 100-140'S c MOVEMENT. HTN ENTIRE SHIFT. MEDICATED PRN c LABETALOL. GOAL SBP 160'S PER DR REGAN. ALL BELONGINGS SENT c PT.
--- NOTE | 2019-06-17 18:22 | NUR ---
NO ACUTE EVENTS THIS HALF OF SHIFT. PATIENT TRANSFERRED FROM ICU. BP 180-190 SYSTOLIC, ATIVAN AND LABETALOL GIVEN, PATIENT WENT FROM SINUS TACH WITH PVCS IN 150S TO SR IN 90S. PATIENT IS CONFUSED, PULLING AT LINES, AND WILL MOVE AND SLIDE IN BED. FALL RISK, IN ADA VEST. PLAN IS TO STOP ABX TOMORROW, CONTINUE TO MONITOR FOR DELIRIUM/ETOH WITHDRAWAL AND ASSESS FOR CONTINUED NEED FOR RESTRAINTS.
--- NOTE | 2019-06-17 19:26 | NUR ---
RELINQUISHED PATIENT CARE.
--- NOTE | 2019-06-18 01:20 | NUR ---
HTN SPOKE WITH RN WHO HAD PT PREVIOUSLY IN ICU REGARDING SBP. NURSE VERIFIED DO PREVIOUS OTHER RN NOTES, THAT PARAMETERS ON PRN LABETOLOL OF MAINTAINING 170-180 SBP WAS FOR WHEN PT WAS ON PRECEDEX. NOTED IN PREVIOUS NOTES, GOAL SBP OF 160'S.
--- NOTE | 2019-06-18 01:49 | NUR ---
HR AT 0130 PT'S HR INCREASES FROM 100'S TO 150'S. BP TAKEN, 170 SBP. LABETOLOL INJ ADMINISTERED PER PARAMETERS. HR DOWN T0 130'S @0150. PT AGITATED RN, SWATTING AT RN WHEN TRYING TO ADMINISTER LABETOLOL. PT REACHING FOR RN AND CONTINUING TO SWAT. CIWA NOW 8. PRN ATIVAN GIVEN FOR AGITATION AT THIS TIME. CONTINUING TO MONITOR.
[2019-06-18 04:42] LABS: BASOPHILS ABSOLUTE AUTO 0.14 K/mm3 (0.00-0.23); BASOPHILS PERCENT AUTO 1 % (0-2); EOSINOPHILS ABSOLUTE AUTO 0.35 K/mm3 (0.00-0.68); EOSINOPHILS PERCENT AUTO 2 % (0-6); Hematocrit 45.9 % (37.0-53.0); Hemoglobin 15.3 g/dL (13.5-17.5); IMMATURE GRAN ABSOLUTE AUTO 0.11 K/mm3 (0.00-0.10); IMMATURE GRAN PERCENT AUTO 1 % (0-1); LYMPHOCYTES ABSOLUTE AUTO 2.75 K/mm3 (0.84-5.20); LYMPHOCYTES PERCENT AUTO 15 % (21-46); MONOCYTES ABSOLUTE AUTO 1.73 K/mm3 (0.16-1.47); MONOCYTES PERCENT AUTO 10 % (4-13); Mean Corpuscular HGB 31.9 pg (26.0-34.0); Mean Corpuscular HGB Conc 33.3 g/dL (31.5-36.5); Mean Corpuscular Volume 96 fL (80-100); Mean Platelet Volume 10.2 fL (9.1-12.4); NEUTROPHILS ABSOLUTE AUTO 12.99 K/mm3 (1.96-9.15); NEUTROPHILS PERCENT AUTO 72 % (41-73); Platelet Count 426 K/mm3 (150-400); RDW Coefficient Variation 13.8 % (11.7-14.2); RDW Standard Deviation 48.3 fL (35.1-46.3); White Blood Cell Count 18.07 K/mm3 (4.00-11.30)
[2019-06-18 05:03] LABS: Alanine Aminotransfer (ALT/SGP 62 U/L (12-78); Albumin, Blood 3.5 g/dL (3.4-5.0); Albumin/Globulin Ratio 0.8 (0.8-1.8); Alk Phos 123 U/L (50-136); Anion Gap 11 mmol/L (6-16); Aspartate Aminotrans (AST/SGOT 32 U/L (12-37); Bilirubin, Total 0.6 mg/dL (0.1-1.0); Blood Urea Nitrogen 22 mg/dL (8-24); Bun/Creatinine Ratio 21.4 (12.0-20.0); CO2, Blood 22 mmol/L (21-32); Calcium, Blood 10.7 mg/dL (8.5-10.1); Chloride, Blood 123 mmol/L (98-108); Creatinine, Blood 1.03 mg/dL (0.60-1.20); Globulin, Blood 4.5 g/dL (2.2-4.0); Glomerular Filtration Rate >60 (60-); Glucose, Blood 144 mg/dL (70-99); Magnesium, Blood 1.9 mg/dL (1.6-2.4); Phosphorus, Blood 3.5 mg/dL (2.5-4.9); Potassium, Blood 3.1 mmol/L (3.5-5.5); Sodium, Blood 156 mmol/L (136-145)
--- NOTE | 2019-06-18 05:13 | NUR ---
END OF SHIFT SUMMARY PT AXOX2 FOR MOST OF SHIFT, STATES CORRECT PLACE/ MOST OF THE TIME BUT DOES GET PARANOID THAT HE IS NOT IN THE HOSOPITAL. ADA VEST CONTINUES DUE TO PT PULLING AT LINES, SOUSA, AND RESTLESSLY TRYING TO MOVE OUT OF BED. PT HAS HAD TO BE MOVED BACK UP IN BED OFTEN BY STAFF. HAS TO BE REMINDED TO NOT PULL ON SOUSA. MULTIPLE MEASURES TAKEN TO PROTECT SOUSA/STATLOCK BUT PT THWARTS MANY OF THESE, HE HAS HOWEVER CALMED DOWN IN THIS ASPECT. PT HAD RUN OF SVT 150'S WITH INCREASED HTN LABETOLOL PUSH GIVEN ORDERED. PT AGITATED AT THIS TIME, ATIVAN GIVEN WELL. PT SLOWLY TRANSITIONED BACK INTO SINUS RHTYHM 90'S. PT REMAINS HYPERTENSIVE BUT HAS REMAINED FOR THE MOST PART IN THE 160'S, UPON REVIEWING PREVIOUS NOTES, 160'S SBP IS THE GOAL FOR THIS PT CURRENTLY. PICC VERY POSITIONAL. ONLY ABLE TO PULL ML BLOOD DESPITE MULTIPLE DIFFERENT ATTEMPTS WITH DIFFERENT METHODS. LENGTH VERIFIED TO BE THE SAME WHEN INSERTED. FLUSHES EASILY. WILL POSSIBLY NEED PICC NURSE TO ASSESS ON DAY SHIFT. NOT BEING INFUSED INTO CURRENTLY. PT REMAINS ON RA, SPO2 >94%. WILL CONTINUE TO MONITOR UNTIL SHIFT CHANGE.
--- NOTE | 2019-06-18 07:21 | NUR ---
ASSUMED PATIENT CARE. PATIENT RESTING COMFORTABLY IN BED, NO SIGNS OF ACUTE DISTRESS, WCTM.
--- NOTE | 2019-06-18 18:48 | NUR ---
NO ACUTE EVENTS THIS SHIFT. PATIENT WORKED WITH PT/OT, WAS ABLE TO STAND ONCE AT BEDSIDE WITH X2 STANDBY ASSIST. PATIENT REMAINED CONFUSED THIS SHIFT, PATIENT HIGH FALL RISK. ADA VEST IN PLACE. PATIENT HAD PO INTAKE FOR DINNER, TOLERATED WELL. SPEECH PATHOLOGY CONSULT ORDERED. NO SIGNS OF ACUTE DISTRESS.
--- NOTE | 2019-06-18 19:13 | NUR ---
RELINQUISHED PATIENT CARE.
--- NOTE | 2019-06-18 23:57 | NUR ---
PICC ORDER FOR CATHFLOW RECEIVED DUE TO PICC NOT DRAWING BLOOD AND HAVING DIFFICULTIES FLUSHING IN SOME PORTS. CATH FLOW INFUSED BY HUA KEATING. 30 MINUTES POST INJECTION, CONTENTS ASPIRATED. DARK BLOOD ASPIRATED. PORTAS NOW FLUSH EASIER AND PICC NOW IS PULLING BLOOD.
--- NOTE | 2019-06-19 00:03 | NUR ---
DISTAL PICC LINE PORT ASPIRATED AFTER 35 MINUTES WITH CATH FLOW. CATH FLOW AND 4 CC OF BLOOD ASPIRATED. CATEHER FLUSHES AND ABLE TO DRAW BLOOD.
[2019-06-19 05:05] LABS: BASOPHILS ABSOLUTE AUTO 0.16 K/mm3 (0.00-0.23); BASOPHILS PERCENT AUTO 1 % (0-2); EOSINOPHILS ABSOLUTE AUTO 0.55 K/mm3 (0.00-0.68); EOSINOPHILS PERCENT AUTO 3 % (0-6); Hematocrit 43.8 % (37.0-53.0); Hemoglobin 14.5 g/dL (13.5-17.5); IMMATURE GRAN ABSOLUTE AUTO 0.09 K/mm3 (0.00-0.10); IMMATURE GRAN PERCENT AUTO 1 % (0-1); LYMPHOCYTES ABSOLUTE AUTO 3.47 K/mm3 (0.84-5.20); LYMPHOCYTES PERCENT AUTO 20 % (21-46); MONOCYTES ABSOLUTE AUTO 1.66 K/mm3 (0.16-1.47); MONOCYTES PERCENT AUTO 10 % (4-13); Mean Corpuscular HGB 32.2 pg (26.0-34.0); Mean Corpuscular HGB Conc 33.1 g/dL (31.5-36.5); Mean Corpuscular Volume 97 fL (80-100); Mean Platelet Volume 10.4 fL (9.1-12.4); NEUTROPHILS ABSOLUTE AUTO 11.24 K/mm3 (1.96-9.15); NEUTROPHILS PERCENT AUTO 66 % (41-73); Platelet Count 455 K/mm3 (150-400); RDW Standard Deviation 50.1 fL (35.1-46.3); Red Blood Cell Count 4.51 M/mm3 (4.30-5.90); White Blood Cell Count 17.17 K/mm3 (4.00-11.30)
[2019-06-19 05:27] LABS: Bun/Creatinine Ratio 27.3 (12.0-20.0); Calcium, Blood 9.8 mg/dL (8.5-10.1); Creatinine, Blood 1.43 mg/dL (0.60-1.20); Magnesium, Blood 2.2 mg/dL (1.6-2.4); Potassium, Blood 3.2 mmol/L (3.5-5.5)
--- NOTE | 2019-06-19 05:45 | NUR ---
END OF SHIFT SUMMARY NO ACUTE CHANGES THIS SHIFT. BP STABLE AND HAS NOT HAD ANY INSTANCES OF HTN. HAS NOT REQUIRED ATIVAN/LIBRIUM THIS SHIFT AND IS SHOWING GREAT IMPROVEMENT IN CLARITY AND IS MAKING MORE SENSE IN CONVERSATION. HAS BEEN HAVING EPISODES OF TRIGEMY THIS SHIFT, ASYMPTOMATIC. ADA GOLD CONTINUES. CLAIR CONTINUES, PATENT. PICC, PULLS BLOOD POST CATHFLOW NOW. WILL CONTINUE TO MONITOR UNTIL SHIFT CHANGE.
--- NOTE | 2019-06-19 06:37 | NUR ---
ORAL INTAKE ENCOURAGING ORAL INTAKE. DIFFICULT DUE TO PT'S MENTAL STATUS AND NEURO LIMITATIONS.
--- NOTE | 2019-06-19 08:00 | NUR ---
PT HAD SPEECH EVAL, DID NOT PASS, ORDER TO HOLD ALL PO INCLUDING MEDS, PT IS RESTING IN BED, COOPERATING WITH SPEECH EVAL, BUT UNABLE TO SWALLOW, NOT ORIENTED, BUT CALM, LUNGS ARE CLEAR IN UPPER CALHOUN, A BIT COURSE IN MID FIELD, DIM IN BASES, RESP EVEN MILDLY LABORED, CURRENTLY ON R/A WITH GOOD SATS ABOVE 90%, IV IS PICC LINE TO JOLEEN SITE IS CLEAR AND PATENT, CURRENTLY INFUSING SECOND HALF OF POTASSIUM, HRIRR, TELE IN PLACE RUNNING AFIB/FLUTTER, THEN TO SR WITH PVC'S, NO EDEMA NTOED, PPP+1, CAP REFILL <3SEC, VS STABLE, AFEBRILE, BTX4, ABD FLAT SOFT NONTENDER, SOUSA CATH IN PLACE, NO URINE THIS AM, HAS A MEPILEX TO COCCYX, AND LWRIST DRESSING, MOVES HIMSELF IN BED, TERRANCE, CALL LIGHT IN REACH.
--- NOTE | 2019-06-19 11:44 | NUR ---
PT HAS BEEN DECLINING SINCE MORNING, SPEECH DID AN EVAL AND DID NOT PASS HIM FOR ANYTHING, WILL BARELY OPEN HIS EYES AT THIS TIME, B/P DROPPING, LOWEST WAS IN THE 60'S, STARTED A BOLUS OF 1/[address] CHEATHAM, SHE WAS CALLED TO THE ROOM, THEN A MEDICAL TRANSCRIPTIONIST, PT FLUSHED, BREATHING RAPIDLY, TURNING HEAD SIDE TO SIDE BUT NOT REALLY RESPONSIVE EXCEPT TO OPEN EYES TO NAME, BUT NO EYE CONTACT. B/P DID COME UP TO 80'S AFTER BOLUS WAS STARTED, MOVED TO ICU. WILL GIVE REPORT.
--- NOTE | 2019-06-19 12:07 | NUR ---
Spiritual care visit conducted. Patient is lying in bed and appears aggitated. his face is grimacing, flushed and sweating. His legs are moving all over the bed. Patient looks at me when I say his name but then he goes back to closed eyes and furrowed brows. I ask patient several questions and he does not respond. I ask patient if I could say a prayer for him and he tries to speak but only moans. I provide prayer and a calming presence. Several staff come in out of the room and state that something is not right with patient. I will continue to be available for patient.
[2019-06-19 12:30] LABS: Base Excess Venous -4.5 mmol/L; Bicarbonate Venous 21.6 mmol/L (24.0-30.0); PCO2 Venous 30.6 mmHg (38-42); PO2 Venous 60.3 mmHg (38-42); pH Blood Venous 7.42 (7.34-7.37)
[2019-06-19 12:36] LABS: BASOPHILS ABSOLUTE AUTO 0.18 K/mm3 (0.00-0.23); BASOPHILS PERCENT AUTO 1 % (0-2); EOSINOPHILS ABSOLUTE AUTO 0.42 K/mm3 (0.00-0.68); EOSINOPHILS PERCENT AUTO 2 % (0-6); Hematocrit 46.4 % (37.0-53.0); IMMATURE GRAN ABSOLUTE AUTO 0.15 K/mm3 (0.00-0.10); IMMATURE GRAN PERCENT AUTO 1 % (0-1); LYMPHOCYTES ABSOLUTE AUTO 3.57 K/mm3 (0.84-5.20); LYMPHOCYTES PERCENT AUTO 18 % (21-46); MONOCYTES ABSOLUTE AUTO 1.84 K/mm3 (0.16-1.47); MONOCYTES PERCENT AUTO 9 % (4-13); Mean Corpuscular HGB 31.9 pg (26.0-34.0); Mean Corpuscular HGB Conc 32.3 g/dL (31.5-36.5); Mean Corpuscular Volume 99 fL (80-100); Mean Platelet Volume 10.6 fL (9.1-12.4); NEUTROPHILS ABSOLUTE AUTO 13.76 K/mm3 (1.96-9.15); NEUTROPHILS PERCENT AUTO 69 % (41-73); Platelet Count 494 K/mm3 (150-400); RDW Coefficient Variation 13.8 % (11.7-14.2); RDW Standard Deviation 50.7 fL (35.1-46.3); White Blood Cell Count 19.92 K/mm3 (4.00-11.30)
[2019-06-19 12:53] LABS: Bun/Creatinine Ratio 24.1 (12.0-20.0); Calcium, Blood 9.8 mg/dL (8.5-10.1); Creatinine, Blood 2.12 mg/dL (0.60-1.20); Magnesium, Blood 2.3 mg/dL (1.6-2.4); Troponin I 0.089 ng/mL (0.000-0.040)
--- NOTE | 2019-06-19 13:00 | NUR ---
PAL CARE VISIT AND ATTEMPT TO IDENTIFY MEDICAL SURROGATE DECISION MAKER. CALL TO PT'S LISTED NOK, FRIEND/HOUSE MATE, JEMMA LIVE [phone] HEMALATHA HAS BEEN CALLING IN DAILY FOR UPDATES BUT WAS IN [place] FOR THE DAY WHEN I CALLED. BRIEF UPDATE PROVIDED RE: PT'S TRANSFER BACK TO ICU. I INQUIRED IF PT HAS BEEN IN CONTACT WITH ADDITIONAL FAMILY MEMBERS OR IF HEMALATHA KNEW OF FAMILY MEMBERS WE COULD CONTACT. WHEN HE RETURNS HOME THIS AFTERNOON, HEMALATHA WILL LOOK FOR FAMILY NAMES/CONTACTS IN PT'S THINGS. HE STATES HE BELIEVES HEMALATHA HAD BEEN SPEAKING WITH A SISTER RECENTLY. HE DOES NOT BELIEVE THERE IS FAMILY LOCALLY. INSTRUCTED THAT ANY FAMILY CONTACT WOULD BE HELPFUL. HEMALATHA STATES PART OF THE DEAL WITH HIM LIVING WITH PT WAS THAT HE WOULD BE SUPPORTIVE OF AND HELP PT WITH HIS GOAL OF QUITTING DRINKING ALCOHOL. HEMALATHA PLANS TO CALL ICU LATER THIS AFTERNOON/JEREMY TO GET MORE OF AN UPDATE. HE WILL PROVIDE ICU STAFF WITH ANY CONTACT INFO HE CAN FIND AND HE WILL LEAVE A MESSAGE WITH THAT SAME INFO ON OUR VOICE MAIL. REPORTED ALL OF ABOVE TO PT'S RN IN ICU, SRIDHAR. SRIDHAR AND DR REGAN IN ROOM WITH PT, WHO REMAINS WITH ALTERED MENTAL STATUS IN ICU. HE IS NOT CONVERSANT AND DOES NOT APPEAR AWAKE. WILL CONT TO FOLLOW TO ASSIST WITH ADVANCED CARE PLANNING AND DETERMINING GOALS OF CARE BEST POSSIBLE WITH PT AND/OR NEXT OF KIN.
--- NOTE | 2019-06-19 13:03 | NUR ---
TRANSFER TO ICU 14 PT TRANSFER IN TO ICU 14 AT 1145 VIA BED. PT IS LETHARGIC AND MOANING OUT. PT OPENS EYES SLIGHTLY TO VOICE. DOES NOT FOLLOW COMMANDS OR SPEAK MEANINGFUL WORDS. SPO2 >90% ON RA. HR 80'S NSR. PT HYPOTENSIVE WITH SBP 70-80'S. FLUID BOLUS INFUSING AT THIS TIME. PICC TO JOLEEN IN PLACE, DIFFICULT TO FLUSH AND DOES NOT DRAW BLOOD BACK. PERIPHERAL IV PLACED TO LFA. LEVOPHED STARTED AT 5 MCG/MIN. SOUSA IN PLACE WITH MINIMAL AMOUNT OF URINE NOTED IN TUBING. DR CHEATHAM AND DR REGAN AT BEDSIDE. NEW ORDERS RECIEVED. WILL CONTINUE TO MONITOR.
--- NOTE | 2019-06-19 15:28 | NUR ---
UPDATE PT WITH IMPROVED MENTATION. PT IS ALERT AND TALKING AT THIS TIME. PT DENIES PAIN OR DISCOMFORT. VITAL SIGNS STABLE WITH LEVOPHED AT 5 MCG/MIN AT THIS TIME. WILL CONTINUE TO MONITOR.
--- NOTE | 2019-06-19 15:37 | NUR ---
Pal Care note: NOK/Medical POA is sisterKristina [phone] and alternate medical POA is nieceValery [phone]. Both live in [place]. Sister, Kristina, describes pt's friend Norris, who pt lives with locally, "like a brother". They have been friends for decades, per sister. I was able to reach pt's friend, Norris Tipton, who put me in touch with pt's sister. I have had multiple conversations with pt's sister and pt's friend, Norris t/o the afternoon. Please see newly acquired advanced directive that was emailed to me by POA and alternate POA for healthcare on pt's chart. Copy also sent to medical records for scanning into pt's EMR. Pt's sister would like to be called first and niece second with any changes in condition or need for input regarding medical decisions. She wants pt's advanced directive strictly followed. It was completed in 2018. Sister spoke to pt a number of weeks ago but was unaware that he had been hospitalized until I called her this afternoon. Pt did not initial to allow for his sister and niece to make decisions for him regarding life support or tube feedings. He did initial that his surrogate decision maker/hospital sales representative is to honor is directive to physicians. Under all four medical conditions listed in the AD pt initialed "I DO NOT WANT tube feeding" and "I want NO life support". He also initialed "I do not want my life to be prolonged by life support. I also do not want tube feeding as life support. I want my doctors to allow me to naturally if my doctor and another knowledgeable doctor confirm i am in any of the medical conditions listed in items 1 to 4 above". Pt's AD is correctly signed and witnessed. Pt's sister and niece are familiar with AD contents and have reviewed it again today. Update given to sister and friend on current status and improvement in alertness and mentation this afternoon since this am and since transfer to ICU. Pt was enjoying visit from our Staffing Mgr when I went to ICU with NOK info for RN. I also went in and spoke to pt, passed on his sisters love and well wishes per her request. Pt nodded, smiled and said Kristina's name. Plan to follow pt for s/s management and advanced care planning support. Pt's RN updated with all of the above.
--- NOTE | 2019-06-19 17:45 | NUR ---
SHIFT SUMMARY PT DOING WELL THIS AFTERNOON. PT HAS REMAINED ALERT AND ABLE TO FOLLOW COMMANDS. PT IS VERY TALKATIVE. PT DENIES PAIN OR DISCOMFORT. VITAL SIGNS STABLE. LEVOPHED REMAINS ON STANDBY. PICC TO JOLEEN IS C/D/I. PICC FLUSHES, BUT REMAINS POSITIONAL AND WILL NOT DRAW BACK BLOOD. NS INFUSING TKO. PERIPHERAL IV IS SALINE LOCKED. SOUSA IN PLACE WITH 350 ML YELLOW URINE OUTPUT THIS SHIFT. PT ASSISTS WITH REPOSITIONING WELL. WILL CONTINUE TO MONITOR AND REPORT OFF TO ONCOMING RN.
[2019-06-19 18:43] LABS: Calcium, Blood 9.1 mg/dL (8.5-10.1); Creatinine, Blood 1.89 mg/dL (0.60-1.20); Potassium, Blood 3.4 mmol/L (3.5-5.5); Troponin I 0.39 ng/mL (0.000-0.040)
--- NOTE | 2019-06-19 19:37 | NUR ---
ASSUMED CARE AT 1900. I-TRACE PERFORMED, ALL PATENT AND DRAINING, STANDBY LINES/MEDS DISPOSED OF. REPORT RECEIVED FROM SRIDHAR SONG. NO FAMILY PRESENT. PT UNABLE TO FULLY PARTICIPATE, ORIENTED TO SELF. KNOWS IS IN HOSPITAL AND IS SPRING, BUT BELIEVES HE IS IN [place], AND DOES NOT KNOW WHY IN HOSPITAL. PT GIVEN CALL LIGHT AND ORIENTED TO USE. PT NOW WATCHING TV. PT COOPERATIVE WITH CARE, NO PAIN EXCEPT WITH PALPATION TO ABDOMEN. HYPERACTIVE BOWEL SOUNDS AND RECTAL TUBE IS DRAINING LIQUID STOOL. PT REPOSITIONED TWICE, LIKES TO MOVE TO RIGHT RAIL. PROPPED WITH PILLOWS.
--- NOTE | 2019-06-19 20:03 | NUR ---
When nurse brought SCD machine in room to set up on patient, he became agitated. Pt HR changed to trigeminy 120s-130s and angry. SCDs left off. Pt demaded staff leave room and leave him alone. Continuous fluids started, lights turned off, but blinds left open per pt request.
[2019-06-20 03:41] LABS: BASOPHILS ABSOLUTE AUTO 0.13 K/mm3 (0.00-0.23); BASOPHILS PERCENT AUTO 1 % (0-2); EOSINOPHILS ABSOLUTE AUTO 0.45 K/mm3 (0.00-0.68); EOSINOPHILS PERCENT AUTO 2 % (0-6); Hematocrit 43.7 % (37.0-53.0); IMMATURE GRAN PERCENT AUTO 1 % (0-1); LYMPHOCYTES PERCENT AUTO 11 % (21-46); MONOCYTES ABSOLUTE AUTO 1.34 K/mm3 (0.16-1.47); MONOCYTES PERCENT AUTO 7 % (4-13); Mean Corpuscular HGB 31.5 pg (26.0-34.0); Mean Corpuscular Volume 98 fL (80-100); Mean Platelet Volume 10.8 fL (9.1-12.4); NEUTROPHILS ABSOLUTE AUTO 15.42 K/mm3 (1.96-9.15); NEUTROPHILS PERCENT AUTO 79 % (41-73); Platelet Count 400 K/mm3 (150-400); RDW Coefficient Variation 13.9 % (11.7-14.2); RDW Standard Deviation 50.1 fL (35.1-46.3); Red Blood Cell Count 4.45 M/mm3 (4.30-5.90); White Blood Cell Count 19.64 K/mm3 (4.00-11.30)
[2019-06-20 04:07] LABS: Anion Gap 8 mmol/L (6-16); Blood Urea Nitrogen 47 mg/dL (8-24); Bun/Creatinine Ratio 27.3 (12.0-20.0); CO2, Blood 21 mmol/L (21-32); Calcium, Blood 9.1 mg/dL (8.5-10.1); Chloride, Blood 123 mmol/L (98-108); Creatinine, Blood 1.72 mg/dL (0.60-1.20); Glomerular Filtration Rate 42 (60-); Glucose, Blood 206 mg/dL (70-99); Magnesium, Blood 1.9 mg/dL (1.6-2.4); Potassium, Blood 2.9 mmol/L (3.5-5.5); Sodium, Blood 152 mmol/L (136-145)
[2019-06-20 04:11] LABS: Troponin I 0.321 ng/mL (0.000-0.040); Vancomycin, Random 14.7 ug/mL
--- NOTE | 2019-06-20 05:55 | NUR ---
PT HAS BEEN RESTLESS MOST OF NIGHT. TOTAL SLEEP TIME APPROX 3 HOURS. PT TURNING SELF SOME IN BED, PULLING SELF TO BACK AND MOVING TO RIGHT SIDE RAIL. PT MOOD LABILE, BUT CURRENTLY COOPERATIVE. PT STILL REFUSING SCDs.
--- NOTE | 2019-06-20 08:00 | NUR ---
Received report from Angie SONG. Patient Laying on right side with head on rail as he repositions self there every time he is positioned. He is on RA and sats 97-100%. He is only oriented to year and self and mumbbles all other words. he has a hard time getting words out. He moves his head around and does not focus on ant direct thing with communication. He has skin tear and mepilex dressing to LFA. He has 16 Fr. pate draining to gravity yellow urine. He allso has rectal tube with light benites/green output. He moves all extremities but weak, He refused SCD's. Dr Chapin has been by no new orders. Speech called and will follow up tomorrow has he is not appropriate today.
--- NOTE | 2019-06-20 11:18 | NUR ---
Dr Roca has been by to assess patient and added fluids and labs. Patient has been resting and awakens easily to verbal stimuli. He follows minimal directions and has extremly hard time to focus. He remains on RA and sats upper 90%'s and tolerating well. Held PO meds and will try to get put as IV meds. Continue to reposition and he rotaes to right side. No other changes. Systolic 112, MAP >65.
--- NOTE | 2019-06-20 11:25 | NUR ---
No specific changes with patient, repositioned patient and assist with care minimally and follow minimal directions. Remains on RA and sats upper 90%'s. Moves extremities in bed but weak.
--- NOTE | 2019-06-20 13:30 | NUR ---
Patient has been resting and angie any current pain except when palpating abdomen, tender in lower quadrants. He remains on RA and sats upper 90%'s. No significant changes.
--- NOTE | 2019-06-20 15:48 | NUR ---
Patrient was repositioned and gave bed bath with linen change and after done he went into SVT 170,s. Tried vagal maneuver and having blow into syringe and did not drop. Called Dr Roca and while answering phone he dropped back into the 120's. EKG done.
--- NOTE | 2019-06-20 16:42 | NUR ---
PATIENT WENT INTO SVT AT [address] SANTANA AND WILL BE DOING AMIODARONE 150MG BOLUS AND AMIODARONE 1 MG FOR 6 HRS AND 0.5 MG FOR 18HRS. SYSTOLIC 90-100 DURING SVT. HE REMAINS ON RA AND SATS UPPER 90%'S AND WAS ABLE TO COMMUNICATE HE HAS BEEN DURING BOTH EPISODES.
--- NOTE | 2019-06-20 19:07 | NUR ---
Gave report to Jacinto SONG. Patient remains on Amiodarone at 1mg/min and will change at 2300. He remains on RA and sats upper 90%'s. He has no other arrytrhmias since start of Amiodarone. e continues to communicate with slurred speech and follow minimal directions. VSS see EMR.
--- NOTE | 2019-06-20 20:27 | NUR ---
ASSUMED PT CARE FROM DUNCAN HARDING AT 1900 PT SLEEPING IN BED. OPENS EYES TO VERBAL STIMULI AND FOLLOWS SIMPLE COMMANDS. APPEARS NONVERBAL AT THIS TIME; ATTEMPTS TO ANSWER QUESTIONS, BUT UNABLE TO FORM THE WORDS. DIFFICULT TO ASSESS CIWA AT THIS TIME D/T PT BEING NONVERBAL/APHASIC. TEMP NOTED TO BE 99.8. PT IS NOT DIAPHORETIC, BUT DOES APPEARS TO HAVE A BASLINE TREMOR WHEN BOTH ARMS ARE RAISED. HE CAN MOVE ALL EXTREMITIES; HOWEVER, HE IS EXTREMELY WEAK AND REQUIRES ASSISTANCE WITH REPOSITIONING AND TURNING. PT HAS A PICC LINE NOTED TO LEFT UPPER ARM WITH AMIODARONE INFUSING AT 1MG/MIN UNTIL 2300 WHEN IT WILL DECREASE TO 0.5MG/MIN. D5 INFUSING AT 50MLS/HR. LUNG SOUNDS ARE COARSE/RHONCI T/O RIGHT UPPER, MIDDLE, AND LOWER LOBES, AND CLEAR TO LEFT UPPER LOBE AND DIMINISHED TO LEFT LOWER LOBE. PT NOTED TO BE SINUS TACHYCARDIA WITH HR 120'S; BP STABLE, SEE FLOWSHEET. SOUSA CATH IS PATENT AND DRAINING MINIMAL DARK, YELLOW URINE TO GRAVITY. RECTAL TUBE IS PATENT AND DRAINING LIGHT BROWN STOOL TO GRAVITY; INSTILLED 10CC MORE OF WATER INTO RECTAL TUBE D/T LEAKAGE AROUND TUBE. PERFORMED THOROUGH ORAL CARE PT HAD FOUL ODOR NOTED TO BREATH. PT NOTED TO HAVE A LOT OF DRY, CRUSTY SHEDDING OF MUCOSA IN MOUTH THAT I WAS ABLE TO ADEQUATELY CLEANSE. WILL CONTINUE TO PERFORM ORAL CARE EVERY 4 HOURS. PT REMAINS NPO. WILL CONTINUE TO REPOSITION EVERY TWO HOURS AND NEEDED.
--- NOTE | 2019-06-20 22:51 | NUR ---
CHANGE DURING PICC LINE DRESSING CHANGE IT WAS NOTED THAT PICC CAME OUT BY 1CM. PT TOLERATED DRESSING CHANGE WITH NO ECTOPI OR CHANGES TO RATE OR RHYTHM. HOWEVER, UPON COMPLETION OF PLACING DRESSING OVER PICC PT'S HR INCREASED TO 150'S. PLACED CALL TO DR. SANATNA WHO TOOK A LOOK AT MOST RECENT XRAY. CALLED BACK WITH ORDERS TO PULL PICC OUT BY 2CM, WAIT 10-15 MINUTES, AND IF HR REMAINS IN THE 150'S THEN TO ADMINISTER 2.5MG OF IV LOPRESSOR. IF UNCHANGED AFTER 10-15 MINUTES, ORDERS TO ADMINISTER ANOTHER 2.5MG OF IV LOPRESSOR. PT REMAINS ON AMIODARONE GTT AT 1MG/MIN. CHANGING TO 0.5MG/MIN AT 2300.
--- NOTE | 2019-06-20 23:44 | NUR ---
RHYTHM CHANGE AFTER PULLING PICC LINE OUT BY 2CM AND WAITING [address] MARTIN ORDERS, PT STILL REMAINED HR 150'S. ADMINISTERED 2.5MG OF IV LOPRESSOR, WHICH WAS EFFECTIVE. HR DECREASED TO 90'S AND BP REMAINED STABLE WITH SBP 100-110'S. PT HAS REMAINED NSR WITH HR 90'S. BP REMAINS STABLE; SEE FLOWSHEET.
[2019-06-21 03:48] LABS: BASOPHILS ABSOLUTE AUTO 0.19 K/mm3 (0.00-0.23); BASOPHILS PERCENT AUTO 1 % (0-2); EOSINOPHILS ABSOLUTE AUTO 0.29 K/mm3 (0.00-0.68); EOSINOPHILS PERCENT AUTO 1 % (0-6); Hematocrit 45.1 % (37.0-53.0); Hemoglobin 14.4 g/dL (13.5-17.5); IMMATURE GRAN ABSOLUTE AUTO 0.17 K/mm3 (0.00-0.10); IMMATURE GRAN PERCENT AUTO 1 % (0-1); LYMPHOCYTES ABSOLUTE AUTO 2.49 K/mm3 (0.84-5.20); LYMPHOCYTES PERCENT AUTO 10 % (21-46); MONOCYTES ABSOLUTE AUTO 1.33 K/mm3 (0.16-1.47); MONOCYTES PERCENT AUTO 5 % (4-13); Mean Corpuscular HGB 32.1 pg (26.0-34.0); Mean Corpuscular HGB Conc 31.9 g/dL (31.5-36.5); Mean Corpuscular Volume 100 fL (80-100); Mean Platelet Volume 11.3 fL (9.1-12.4); NEUTROPHILS ABSOLUTE AUTO 20.67 K/mm3 (1.96-9.15); NEUTROPHILS PERCENT AUTO 82 % (41-73); Platelet Count 389 K/mm3 (150-400); RDW Coefficient Variation 14.2 % (11.7-14.2); Red Blood Cell Count 4.49 M/mm3 (4.30-5.90); White Blood Cell Count 25.14 K/mm3 (4.00-11.30)
[2019-06-21 04:07] LABS: Anion Gap 6 mmol/L (6-16); Blood Urea Nitrogen 52 mg/dL (8-24); CO2, Blood 20 mmol/L (21-32); Calcium, Blood 8.7 mg/dL (8.5-10.1); Chloride, Blood 128 mmol/L (98-108); Creatinine, Blood 2.17 mg/dL (0.60-1.20); Glomerular Filtration Rate 32 (60-); Glucose, Blood 224 mg/dL (70-99); Magnesium, Blood 2.1 mg/dL (1.6-2.4); Phosphorus, Blood 2.3 mg/dL (2.5-4.9); Potassium, Blood 3.3 mmol/L (3.5-5.5); Sodium, Blood 154 mmol/L (136-145); Vancomycin, Random 20.8 ug/mL
--- NOTE | 2019-06-21 05:52 | NUR ---
END OF SHIFT SUMMARY NEURO STATUS HAS SLIGHTLY IMPROVED T/O SHIFT. PT ABLE TO STATE 1-2 WORDS; HOWEVER, STILL DEMONSTRATES DIFFICULTIES WITH WORD FINDING. ABLE TO FOLLOW COMMANDS AND DEMONSTRATES UNDERSTANDING OF WHAT IS BEING VERBALIZED TO HIM. PT HAD ONE EPISODE OF HR 150'S; SEE EARLIER NOTE. CURRENTLY HR IS LOW 100'S WITH STABLE BP'S, SEE FLOWSHEET. PT REMAINS ON AMIODARONE GTT AT 0.5 MG/MIN. BIOX 90'S ON ROOM AIR. LUNG SOUNDS REMAIN COARSE RHONCHI T/O WITH WEAK, NON-PRODUCTIVE COUGH. RESP RATE HAS REMAINED IN THE LOW 30'S. ABDOMEN IS SOFT, TENDER UPON PALPATION TO BILATERAL LOWER QUADRANTS WITH HYPERACTIVE BOWEL TONES. HOWEVER, PULLED RECTAL TUBE D/T SOFT FORMING STOOL. PT HAS RECEIVED LORENA AND SOUSA CATH CARES WITH ATTEND CHANGES; HOWEVER, HE HAS NOT HAD A BM SINCE REMOVAL OF RECTAL TUBE. SOUSA CATH REMAINS PATENT AND DRAINING DARK, YELLOW URINE WITH NOTED ODOR TO GRAVITY; 450CC THIS SHIFT. WILL CONTINUE TO MONITOR FOR CHANGES UNTIL REPORT IS HANDED OFF TO ONCOMING RN.
--- NOTE | 2019-06-21 07:00 | NUR ---
REC'D BEDSIDE REPORT FROM DUNCAN COCHRAN AND AM NOW ASSUMING CARE OF THIS PT.
--- NOTE | 2019-06-21 07:32 | NUR ---
PT RECIEVED ORAL CARE. MULTIPLE SWABS AND MOUTH WASH USED. LARGE CASTS FROM SOFT PALLET/BACK OF THROAT.
--- NOTE | 2019-06-21 07:45 | NUR ---
AM ASSESSMENT: PT IS ALERT AND ORIENTED TO SELF ONLY. PT ABLE TO ANSWER SIMPLE QUESTIONS AND FOLLOW SIMPLE YES/NO QUESTIONS AND FOLLOWS COMMMANDS. PT VERY SLOW TO RESPOND. PT NEEDS ASSIST TO REPOSITION, HE IS VERY DECONDITIONED. LUNGS WITH INS/EXP RHONCI/COARSENESS T/O BILATERALLY. SPO2 LOW 90% RANGE ON RA. WET, COUGH THAT PT MOST LIKELY DOES NOT CLEAR, LARGE AMTS OF CASTING IS IN MOUTH/THROAT. HR REGULAR, ST- LOW 100'S. PICC LINE IN RT UA WITH AMIODARIONE @ 0.5MG/MIN. PT REMAINS NPO AT THIS FOR ASPIRATIONS CONCERNS. ST TO RE-EVAL TODAY. ABD SOFT/ROUND/NON-TENDER TO PALP. HYPOACTIVE BT'S X 4 QAUDS. SOUSA CATH DRAINING SMALL AMTS OF DARK YELLOW URINE.
--- NOTE | 2019-06-21 09:10 | NUR ---
REPORTED OFF TO DUNCAN GOULD WHOM IS NOW ASSUMING CARE OF THIS PT.
--- NOTE | 2019-06-21 10:18 | NUR ---
ASSUMED CARE: REPORT RECEIVED FROM SUKUMAR Marquez RN. ASSUMED CARE OF THIS PT AT APPROX 0900.
[2019-06-21 10:56] LABS: Source, Urine Catheter
[2019-06-21 11:04] LABS: Bilirubin, Urine Neg (Neg); Blood, Urine Neg (Neg); Glucose Qualitative, Urine Neg (Neg); Ketones, Urine Neg (Neg); Leukocyte Esterase, Urine 1+ (Neg); Nitrite, Urine Neg (Neg); Protein, Urine 2+ (Neg); Urobilinogen, Urine NORM (Normal)
--- NOTE | 2019-06-21 11:08 | NUR ---
PICC LINE: BASED ON CXR DONE THIS AM, DR SANTANA WOULD LIKE THE PICC LINE TO BE WITHDRAWN 2 CM. ON ASSESSMENT, THE PICC LINE IS CURRENTLY AT 6 CM DEPTH. WITHDRAWN TO 8 CM & REDRESSED USING STERILE TECHNIQUE. SIGN HANGING ON ROOM DOOR HAS BEEN UPDATED WELL.
[2019-06-21 11:19] LABS: Appearance, Urine Clear (Clear); Color, Urine Yellow (P-Yellow)
[2019-06-21 11:21] LABS: Red Blood Cells, Urine 0-2 /hpf (0-2); Squamous Epithelial Cells Rare /hpf (Few)
[2019-06-21 11:22] LABS: Amorphous Light (0-Heavy); Bacteria Many /hpf
--- NOTE | 2019-06-21 17:00 | NUR ---
DR SANTANA: CALL TO PROVIDER TO NOTIFY HIM THAT AMIODARONE IS ALMOST COMPLETE & THAT PT's HR CONTINUES TO BE ELEVATED TO 130-140s W/ ACTIVITY. HE STS TO D/C AMIO ONCE BAG IS COMPLETE & GIVE 1L LR BOLUS AT 500 ML/HR. ORDERS PLACED.
--- NOTE | 2019-06-21 17:49 | NUR ---
SHIFT SUMMARY: NO ACUTE CHANGES SINCE PRIOR UPDATES. PT REMAINS AWAKE, ANSWERING YES/NO QUESTIONS APPROPRIATELY. SPEECH IS GARBLED & SLURRED MAKING COMMUNICATION DIFFICULT AT TIMES. LS ARE COARSE T/O. SPUTUM SPECIMEN NEEDED BUT PT IS UNABLE TO FULLY EXPECTORATE SPUTUM AT THIS TIME. PT ON RA W/ O2 SATS > 92%. MONITOR CONTINUES SHOWING ST W/ HR 100s ON AVG, OCCASIONAL TACHYCARDIA NOTED W/ HR 140-150s. LR BOLUS INFUSING PER ORDERS, PROVIDER WOULD LIKE TO BE NOTIFIED IF ELEVATED HR CONTINUES AFTER BOLUS. ABD REMAINS TENDER TO PALPATION, PT HAD SMEAR OF BROWN BM NOTED DURING BED BATH. SOUSA REMAINS PATENT/ DRAINING DARK YELLOW URINE. SKIN CONDITION OVERALL UNCHANGED. WILL CONTINUE TO MONITOR & REPORT OFF TO ONCOMING RN.
--- NOTE | 2019-06-21 20:14 | NUR ---
INITAL SHIFT ASSESSMENT PT IS ALERT AT THIS TIME. SITTING IN AN UPRIGHT POSISTION IN BED. WHEN ASKED QUESTIONS HE WILL AT TIMES ANSWER YES OR NO, BUT OTHER TIMES HE HAS GARBLED SPEECH THAT CANNOT BE UNDER STOOD. HE IS MOVING HIS ARMS ABOUT BUT NO PURPOSFUL MOVEMENTS. HE HAS WHAT APPEARS TO BE A BASELINE HEAD TREMOR. HE DOES NOT MOVE HIS LEGS WHEN ASKED TO. HE ALSO DOES NOT SQUEEZE THIS NURSES HANDS WHEN ASKED TO WITH HIS HANDS. VITALS ARE STABLE AT THIS TIME. HE IS ON RA. DOES APPEAR TO BE SOB AT REST. HE ALSO ATTEMPTS TO CLEAR HIS THROAT, BUT IS NOT ABLE TO COUGH UP ANYTHING. PT HAS A PICC LINE TO RIGHT UPPER ARM THAT IS PATENT WITH FLUIDS RUNNING ORDERED. DRESSING IS CDI WITH NO S/S OF INFECTION. PT ALSO HAS A PERIPHERAL IV TO LEFT AC THAT IS PATENT WITH NS BOLUS FINISHING UP AT THIS TIME. SEE EMAR FOR ALL ADMINISTERED MEDICATIONS. PT HAS A SOUSA CATH IN PLACE. CATH CARE WAS DONE AT THIS TIME. PT DOES HAVE AN ATTENDS IN PLACE WITH NO STOOL AT THIS TIME. OVERALL PT IS STABLE. WILL CON'T TO MONITOR AND KEEP PT SAFE T/O SHIFT.
--- NOTE | 2019-06-22 00:30 | NUR ---
SHIFT UP DATE PT CON'T TO BE FAIRLY COOPERATIVE WITH CARE. DR SANTANA WAS CALLED REGARDING PT'S ELEVATED HR. DR SANTANA STATES PT TOLERATED PERIODS OF THIS DURING THE DAY. HE ORDERED HOWEVER TO GIVE LOPRESSOR IV. THIS WAS GIVEN WITH GOOD RESULTS. WITHIN APPROXIMATELY 30 MIN PT WAS DOWN TO 97 HR. BP REMAINS WNL WITH ELEVATED HR AND PT SHOWS NO S/S OF DISTRESS. VITALS ARE STABLE. THIS RN DID PLACE OXYGEN ON AT 2L R/T OXYGEN SATS HOLDING AT 89%. PERFORMED ORAL CARE AND ENCOURAGED PT TO COUGH UP HIS SPUTUM. HE WAS ABLE TO FOLLOW THE COMMAND TO COUGH, BUT CON'T TO BE UNABLE TO CLEAR THE SECRETIONS. PT WAS COOPERTIVE WITH ORAL CARE. PT CONSTANTLY MUTTERS WHILE THIS NURSE IS IN ROOM PROVIDING CARE. WHEN ASKED QUESTIONS HE IS NOW MAKING EYE CONTACT AND ATTEMPTING TO ANSWER THIS NURSE. WHEN THIS RN CHANGED THE TV CHANNEL HE YELLED HEY DON'T DO THAT. WILL CON'T TO MONITOR AND KEEP PT SAFE T/O REMAINDER OF SHIFT.
[2019-06-22 03:30] LABS: BASOPHILS ABSOLUTE AUTO 0.13 K/mm3 (0.00-0.23); BASOPHILS PERCENT AUTO 1 % (0-2); Hematocrit 38.7 % (37.0-53.0); Hemoglobin 12.4 g/dL (13.5-17.5); LYMPHOCYTES ABSOLUTE AUTO 2.81 K/mm3 (0.84-5.20); LYMPHOCYTES PERCENT AUTO 14 % (21-46); MONOCYTES ABSOLUTE AUTO 0.79 K/mm3 (0.16-1.47); MONOCYTES PERCENT AUTO 4 % (4-13); Mean Corpuscular HGB 31.9 pg (26.0-34.0); Mean Corpuscular Volume 100 fL (80-100); Mean Platelet Volume 11.4 fL (9.1-12.4); Platelet Count 356 K/mm3 (150-400); RDW Coefficient Variation 14.2 % (11.7-14.2); RDW Standard Deviation 51.3 fL (35.1-46.3); Red Blood Cell Count 3.89 M/mm3 (4.30-5.90); White Blood Cell Count 20.59 K/mm3 (4.00-11.30)
[2019-06-22 03:32] LABS: EOSINOPHILS ABSOLUTE AUTO 0.54 K/mm3 (0.00-0.68); EOSINOPHILS PERCENT AUTO 3 % (0-6); IMMATURE GRAN ABSOLUTE AUTO 0.12 K/mm3 (0.00-0.10); IMMATURE GRAN PERCENT AUTO 1 % (0-1); NEUTROPHILS PERCENT AUTO 79 % (41-73)
[2019-06-22 03:54] LABS: Alanine Aminotransfer (ALT/SGP 227 U/L (12-78); Albumin, Blood 2.1 g/dL (3.4-5.0); Albumin/Globulin Ratio 0.5 (0.8-1.8); Alk Phos 118 U/L (50-136); Anion Gap 4 mmol/L (6-16); Aspartate Aminotrans (AST/SGOT 105 U/L (12-37); Bilirubin, Total 0.2 mg/dL (0.1-1.0); Blood Urea Nitrogen 44 mg/dL (8-24); Bun/Creatinine Ratio 23.7 (12.0-20.0); CO2, Blood 22 mmol/L (21-32); Calcium, Blood 7.9 mg/dL (8.5-10.1); Chloride, Blood 127 mmol/L (98-108); Creatinine, Blood 1.86 mg/dL (0.60-1.20); Globulin, Blood 4.5 g/dL (2.2-4.0); Glomerular Filtration Rate 39 (60-); Glucose, Blood 149 mg/dL (70-99); Magnesium, Blood 1.9 mg/dL (1.6-2.4); Phosphorus, Blood 2.7 mg/dL (2.5-4.9); Potassium, Blood 3.3 mmol/L (3.5-5.5); Sodium, Blood 153 mmol/L (136-145); Total Protein, Blood 6.6 g/dL (6.4-8.2); Vancomycin, Random 18.7 ug/mL
--- NOTE | 2019-06-22 05:14 | NUR ---
SHIFT SUMMARY PT CON'T TO BE STABLE T/O SHIFT. HE HAS NO CHANGES FROM BASELINE. SEEMS TO BE MORE AWAKE THIS AM THAN EVEN AT BEGINNING OF SHIFT. VITALS ARE STABLE. PT DID HAVE SOME RUNS OF HR IN THE 150'S. DR SANTANA WAS CALLED AGAIN AND DISCUSSED GIVING LOPRESSOR IV AGAIN IF NEEDED. WILL CON'T TO MONITOR AND KEEP PT SAFE T/O REMAINDER OF SHIFT.
--- NOTE | 2019-06-22 07:15 | NUR ---
BEGINNING OF SHIFT Assumed care of pt at 0700. Bedside report received from Patsy SNOG. Pt alert. Does not answer orientation questions. Pt sometimes answers yes/no questions. Pt speaks a lot, but speech is very slurred and mostly incomprehensible. Pt initially on 2 LPM NC. Titrated to room air. SpO2 90% or greater. SR per monitor.
--- NOTE | 2019-06-22 08:00 | NUR ---
SVT Pt having runs of SVT. This RN walked pt through vagal manuver using syringe. Ineffective. Dr Roca notified. Orders given for 2.5 mg IV metoprolol. Effective at resolving SVT. Will continue to closely reassess.
--- NOTE | 2019-06-22 08:45 | NUR ---
DR SANTANA IN ROOM Discused low potassium. Provider states he will address this.
--- NOTE | 2019-06-22 09:21 | NUR ---
spoke with sister keshawn marychuy on his progress. Will have them speak on phone later today she does not have abilty to use a tbalet or zoom or facetime
--- NOTE | 2019-06-22 10:05 | NUR ---
[facility] Per speech therapist, pt is okay to have oral meds crushed in applesauce with close assessment and coaching. Pt is still not appropriate for PO intake of fluids or nutrition. Dr Roca notified. Pt to receive oral metoprolol.
--- NOTE | 2019-06-22 14:00 | NUR ---
UPDATE Pt tolerated meds crushed in applesauce well. Speech becoming more clear as shift continues.
--- NOTE | 2019-06-22 19:32 | NUR ---
SUMMARY For majority of shift, pt has been happy, pleasant and cooperative with care. Pt became agitated when PT/OT attempted to work with him. This RN was able to verbally redirect pt and deescalate pt. Dr Roca notified of pt's agitation. Precedex available for use if necessary. Pt remains on room air. Pt has moist, loose, cough but has not produced any sputum. Since first PO dose of metoprolol, pt has not had any runs of SVT. Report given to Estelita SONG.
--- NOTE | 2019-06-22 21:39 | NUR ---
PT RESTING IN BED. WAS INCONTINENT OF LOOSE STOOL. PT IS CONFUSED BUT ABLE TO FOLLOW DIRECTIONS. CONVERSATION DOES NOT MAKE SENSE BUT PLEASANT AND COOPERATIVE. PRECEDEX WAS ORDERED FOR PT EARLIER BUT HAS NOT BEEN STARTED SINCE HE HAS BEEN PLEASANT AND COOPERATIVE. PT CAN HELP A LITTLE WITH TURNING IN BED. NO SIGN OF DISTRESS AT THIS MOMENT.
[2019-06-23 03:39] LABS: BASOPHILS ABSOLUTE AUTO 0.09 K/mm3 (0.00-0.23); BASOPHILS PERCENT AUTO 1 % (0-2); Hematocrit 34.6 % (37.0-53.0); Hemoglobin 11.3 g/dL (13.5-17.5); LYMPHOCYTES ABSOLUTE AUTO 2.69 K/mm3 (0.84-5.20); LYMPHOCYTES PERCENT AUTO 17 % (21-46); MONOCYTES ABSOLUTE AUTO 0.71 K/mm3 (0.16-1.47); MONOCYTES PERCENT AUTO 5 % (4-13); Mean Corpuscular HGB Conc 32.7 g/dL (31.5-36.5); Mean Corpuscular Volume 98 fL (80-100); Mean Platelet Volume 11.7 fL (9.1-12.4); Platelet Count 385 K/mm3 (150-400); RDW Coefficient Variation 14.1 % (11.7-14.2); RDW Standard Deviation 50.7 fL (35.1-46.3); Red Blood Cell Count 3.53 M/mm3 (4.30-5.90); White Blood Cell Count 15.88 K/mm3 (4.00-11.30)
[2019-06-23 03:43] LABS: EOSINOPHILS ABSOLUTE AUTO 0.67 K/mm3 (0.00-0.68); EOSINOPHILS PERCENT AUTO 4 % (0-6); IMMATURE GRAN ABSOLUTE AUTO 0.07 K/mm3 (0.00-0.10); IMMATURE GRAN PERCENT AUTO 0 % (0-1); NEUTROPHILS ABSOLUTE AUTO 11.65 K/mm3 (1.96-9.15); NEUTROPHILS PERCENT AUTO 73 % (41-73)
[2019-06-23 04:01] LABS: Alanine Aminotransfer (ALT/SGP 161 U/L (12-78); Albumin, Blood 2.1 g/dL (3.4-5.0); Albumin/Globulin Ratio 0.5 (0.8-1.8); Alk Phos 126 U/L (50-136); Anion Gap 5 mmol/L (6-16); Aspartate Aminotrans (AST/SGOT 55 U/L (12-37); Bilirubin, Total 0.2 mg/dL (0.1-1.0); Blood Urea Nitrogen 33 mg/dL (8-24); Bun/Creatinine Ratio 23.9 (12.0-20.0); CO2, Blood 22 mmol/L (21-32); Calcium, Blood 8.3 mg/dL (8.5-10.1); Chloride, Blood 128 mmol/L (98-108); Creatinine, Blood 1.38 mg/dL (0.60-1.20); Globulin, Blood 4.3 g/dL (2.2-4.0); Glomerular Filtration Rate 55 (60-); Glucose, Blood 129 mg/dL (70-99); Magnesium, Blood 1.9 mg/dL (1.6-2.4); Phosphorus, Blood 1.6 mg/dL (2.5-4.9); Potassium, Blood 3.3 mmol/L (3.5-5.5); Sodium, Blood 155 mmol/L (136-145); Total Protein, Blood 6.4 g/dL (6.4-8.2); Vancomycin, Random 16.1 ug/mL
--- NOTE | 2019-06-23 06:43 | NUR ---
SUMMARY PT IS VERY ACTIVE IN BED. HE IS CONFUSED AND CONVERSATION IS NONSENSICAL. HE DID NOT SLEEP AT ALL. HE IS CONSTANTLY MOVING AROUND IN BED, KICKING LEGS OVER THE BEDRAILS, AND ANYTIME HE IS TURNED SIDE TO SIDE HE WILL TURN HIMSELF BACK TO HIS BACK. HAD SEVERAL LIQUID BM'S. CALLED DR. SANTANA THIS AM ABOUT PHOS AND POTASSIUM LEVEL. HE IS PUTTING ORDERS IN. NO RUNS OF SVT THIS SHIFT. ABLE TO TAKE METOPROLOL IN APPLESAUCE OR PUDDING WITHOUT ISSUE. NO OTHER CHANGES THIS SHIFT.
--- NOTE | 2019-06-23 09:04 | NUR ---
DR SANTANA ORDER CLARIFICATION DR SANTANA AWARE OF PT'S SODIUM, PHOS, AND POTASSIUM LEVELS. CONFIRMED WITH DR SANTANA THAT HE WANTS SODIUM PHOS REPLACEMENT GIVEN ORDERED. DR SANTANA AWARE THAT PT IS CURRENTLY RECEIVING THE POTASSIUM PHOS REPLACEMENT ORDERED, BUT THAT SODIUM PHOS REPLACEMENT HAD BEEN HELD D/T ELEVATED SODIUM LEVEL. PER DR SANTANA PT TO RECEIVE THE SODIUM PHOS REPLACEMENT ORDERED. PLAN TO ADMINISTER WHEN POTASSIUM PHOS REPLACEMENT IS COMPLETE.
--- NOTE | 2019-06-23 12:10 | NUR ---
DR SANTANA ROUNDS DR SANTANA ROUNDED, UPDATED ON PT STATUS. DR SANTANA NOTIFIED OF PT'S APNEIC EPISODES, PER DR SANTANA THIS IS NORMAL FOR PT. DR SANTANA ALSO UPDATED ON PT'S SLEEPINESS AND POOR AROUSABILITY. ORDERS RECEIVED TO PLACE DOBHOFF AND INITIATE TF PER DIETARY RECOMMENDATION. NO FURTHER CHANGES AT THIS TIME. WILL CONT TO MONITOR PT.
--- NOTE | 2019-06-23 12:40 | NUR ---
DOBHOFF PLACEMENT DOBHOFF PLACED WITHOUT COMPLICATION TO RIGHT NOSTRIL. STAT CXR ORDERED TO CONFIRM PLACEMENT, AWAITING CONFIRMATION THEN GUIDE WIRE WILL BE REMOVED.
--- NOTE | 2019-06-23 13:47 | NUR ---
TUBE FEEDING STARTED PIVOT 1.5 FORMULA STARTED AT 25ML/HR WITH 200ML WATER FLUSH Q4H PER DR SANTANA ORDERS. PT TOLERATING DOBHOFF WELL. WILL MONITOR PT.
--- NOTE | 2019-06-23 14:22 | NUR ---
DOBHOFF PULLED BY PT PT PULLED DOBHOFF OUT. TF STOPPED AT THIS TIME. PT VERBALLY AND PHYSICALLY AGGRESSIVE. PT STATING "I WILL CALL MY SAMPLE BOOK MAKER", "WHAT DAY IS IT, TUESDAY?", "TUESDAY MY SAMPLE BOOK MAKER WILL BE HERE AND YOU'LL BE SORRY". ATTEMPTED TO MOVE TF LINE FROM PT'S CHEST AND PT FLUNG ARM OUT AT THIS RN. EXPRESSED TO PT THAT HE CANNOT GET PHYSICAL WITH STAFF. PT PROCEEDED TO REQUEST WATER. INFORMED PT TO WHY HE CANNOT HAVE WATER UNTIL AFTER SPEECH THERAPY HAS EVALUATED HIM, PT UPSET ABOUT THIS AND USING "FUCK". EXPRESSED TO PT THAT HE CANNOT USE THAT LANGUAGE WITH STAFF. PT CALMED ALTHOUGH REMAINS UPSET ABOUT NOT BEING GIVEN WATER. OFFERED MOUTH SWABS TO WHICH PT DECLINED.
[2019-06-23 16:24] LABS: Phosphorus, Blood 4.1 mg/dL (2.5-4.9); Potassium, Blood 3.1 mmol/L (3.5-5.5)
--- NOTE | 2019-06-23 16:32 | NUR ---
CALL TO DR SANTANA CALL TO DR SANTANA REGARDING PT'S 1500 LABS. ORDERS RECEIVED FROM DR SANTANA FOR 20MEQ KCl IV NOW. DR SANTANA UPDATED THAT PT PULLED DOBHOFF AND TF SINCE HAS BEEN OFF. DR SANTANA AWARE THAT PT BECAME AGITATED AND VERBALLY AND PHYSICALLY AGGRESSIVE AT STAFF WHEN ATTEMPTING TO MOVE TF TUBING FROM HIS CHEST AFTER HE PULLED DOBHOFF. PER DR SANTANA PLAN TO RETRY PLACEMENT OF DOBHOFF TOMORROW. NO FURTHER CHANGES TO PLAN OF CARE AT THIS TIME. WILL CONT TO MONITOR PT.
--- NOTE | 2019-06-23 18:24 | NUR ---
CALL TO DR SANTANA CALL TO DR SANTANA REGARDING PT ACUTE CHANGE IN BEHAVIOR. PT AGITATED, RESTLESS AND BECOMING AGGRESSIVE WITH STAFF. PT THREATENING THIS RN, WAVING PHONE AND SHOUTING TO "GET OUT, GET THE FUCK OUT" AND STATING "I CALLED MY REGIONAL SAFETY MANAGER FRIENDS ON YOU". LISBETH, RN AND JOLLY RN TO BEDSIDE TO ATTEMPT TO CALM PT AND REDIRECT WITHOUT SUCCESS. DR SANTANA UPDATED ON THIS, ORDERS RECEIVED FOR ATIVAN 0.5-1MG IV Q4H PRN AND PRECEDEX IV TITRATE. PER DR SANTANA HE'D LIKE TO AVOID SEDATING PT D/T HIS MENTAL STATUS, PLAN TO START ATIVAN FIRST. WILL CONT TO MONITOR PT.
--- NOTE | 2019-06-23 18:27 | NUR ---
PT REFUSING CARE PT AGITATED AND AGGRESSIVE TO STAFF. PT REFUSING TO ALLOW THIS RN TO OBTAIN CBG AND GIVE 1800 MEDS. AWAITING ATIVAN, WILL TRY THIS TO CALM PT VERBAL CALMING METHODS AND REDIRECTION DO NOT WORK.
--- NOTE | 2019-06-23 22:00 | NUR ---
PT IS NOW RESTING IN BED ON PRECEDEX GTT. AT THE BEGINING OF SHIFT PT WAS CONSTANTLY TRYING TO GET OOB. ADAMENT ABOUT GOING OUTSIDE TO SMOKE. DIFFICULT TO REDIRECT AND WAS THREATENING STAFF. AFTER STARTING PRECEDEX PT HAS BEEN ABLE TO SLEEP A LITTLE BIT AND IS MORE COOPERATIVE, AND EASY TO AROUSE FROM SLEEP. ALSO PLACED IN ADA VEST HE IS A HIGH RISK FOR FALLING. PT IS HAVING LIQUID STOOL. SENT SPECIMEN FOR C-DIFF. PLACED RECTAL TUBE TO PROTECT HIS ALREADY FRAGILE SKIN. PUT BARRIER CREAM ON BUTTOCKS THAT IS REDDENED. NO SIGN OF DISTRESS AT THE MOMENT. BED ALARM ALSO ARMED FOR SAFETY.
[2019-06-23 23:26] LABS: Adenovirus F 40/41 Not Detected (NOT DETECT); Astrovirus Not Detected (NOT DETECT); Campylobacter Sp Not Detected (NOT DETECT); Cryptosporidium Not Detected (NOT DETECT); Cyclospora Cayetanensis Not Detected (NOT DETECT); E. Coli O157 Not Detected (NOT DETECT); Entamoeba Histolytica Not Detected (NOT DETECT); Enteroaggregative E. coli-EAEC Not Detected (NOT DETECT); Enteropathogenic E. coli-EPEC Not Detected (NOT DETECT); Enterotoxigenic E. coli-ETEC Not Detected (NOT DETECT); Giardia Lamblia Not Detected (NOT DETECT); Norovirus GI/GII Not Detected (NOT DETECT); Plesiomonas Shigelloides Not Detected (NOT DETECT); Rotavirus A Not Detected (NOT DETECT); Salmonella Sp Not Detected (NOT DETECT); Sapovirus Not Detected (NOT DETECT); Shiga Toxin-prod E. coli-STEC Not Detected (NOT DETECT); Shigella/Enteroin E. coli-EIEC Not Detected (NOT DETECT); Vibrio Cholerae Not Detected (NOT DETECT); Vibrio Sp Not Detected (NOT DETECT); Yersinia Enterocolitica Not Detected (NOT DETECT)
[2019-06-24 03:33] LABS: BASOPHILS ABSOLUTE AUTO 0.05 K/mm3 (0.00-0.23); BASOPHILS PERCENT AUTO 0 % (0-2); EOSINOPHILS PERCENT AUTO 4 % (0-6); Hematocrit 32.4 % (37.0-53.0); Hemoglobin 10.8 g/dL (13.5-17.5); IMMATURE GRAN ABSOLUTE AUTO 0.05 K/mm3 (0.00-0.10); IMMATURE GRAN PERCENT AUTO 0 % (0-1); LYMPHOCYTES ABSOLUTE AUTO 2.63 K/mm3 (0.84-5.20); LYMPHOCYTES PERCENT AUTO 23 % (21-46); MONOCYTES ABSOLUTE AUTO 0.45 K/mm3 (0.16-1.47); MONOCYTES PERCENT AUTO 4 % (4-13); Mean Corpuscular HGB 32.2 pg (26.0-34.0); Mean Corpuscular HGB Conc 33.3 g/dL (31.5-36.5); Mean Corpuscular Volume 97 fL (80-100); Mean Platelet Volume 11.6 fL (9.1-12.4); NEUTROPHILS PERCENT AUTO 68 % (41-73); Platelet Count 370 K/mm3 (150-400); RDW Coefficient Variation 13.8 % (11.7-14.2); RDW Standard Deviation 49.2 fL (35.1-46.3); Red Blood Cell Count 3.35 M/mm3 (4.30-5.90); White Blood Cell Count 11.38 K/mm3 (4.00-11.30)
[2019-06-24 03:52] LABS: Alanine Aminotransfer (ALT/SGP 95 U/L (12-78); Albumin, Blood 1.9 g/dL (3.4-5.0); Albumin/Globulin Ratio 0.5 (0.8-1.8); Alk Phos 111 U/L (50-136); Anion Gap 6 mmol/L (6-16); Aspartate Aminotrans (AST/SGOT 24 U/L (12-37); Bilirubin, Total 0.2 mg/dL (0.1-1.0); Blood Urea Nitrogen 22 mg/dL (8-24); Bun/Creatinine Ratio 18.3 (12.0-20.0); CO2, Blood 21 mmol/L (21-32); Calcium, Blood 7.8 mg/dL (8.5-10.1); Chloride, Blood 124 mmol/L (98-108); Globulin, Blood 3.9 g/dL (2.2-4.0); Glomerular Filtration Rate >60 (60-); Glucose, Blood 153 mg/dL (70-99); Magnesium, Blood 1.5 mg/dL (1.6-2.4); Phosphorus, Blood 3.2 mg/dL (2.5-4.9); Potassium, Blood 3.4 mmol/L (3.5-5.5); Sodium, Blood 151 mmol/L (136-145); Total Protein, Blood 5.8 g/dL (6.4-8.2)
--- NOTE | 2019-06-24 07:16 | NUR ---
SUMMARY PT IN BED WITH ADA VEST. ON PRECEDEX GTT AT 0.7MCG/KG/MIN. ALSO HAVE GIVEN ATIVAN. PT CONTINUES TO TRY TO GET OOB BY SWINGING LEGS OVER SIDE AND SCOOTING DOWN IN BED. WAS HOPING TO TRY TO GET PT TO RECLINER BUT HE BECAME COMBATIVE THIS AM WITH STAFF. MOOD IS VERY LABILE. HAS HAD LIQUID STOOL AND HAD TO PLACE FLEXISEAL. NEGATIVE FOR C-DIFF.
--- NOTE | 2019-06-24 08:06 | NUR ---
ASSUMED CARE PT RESTING IN BED, SCOOTED CHCF DOWN WITH LEGS THROWN OVER THE SIDE. PT MUMBLES, SOMETIMES UNDERSTANDABLE. PT HAD RIPPED TELE LEADS OFF AND WOULD PULL AT LEADS AND STAFFS ARMS WHILE TRYING TO PUT THEM BACK ON. WRIST RESTRAINTS PLACED ON PT TO STOP HIM FROM PULLING AT LINES AND TO KEEP HIM FROM FALLING OUT OF BED. DR. HART AWARE. PT HAVE SHORT APNEA PERIODS CAUSING HIM TO DESAT TO THE LOW 80S PERIODICALLY. 2L/NC PLACED ON PT AND SATS REMAINING ABOVE 90%. RECTAL TUBE DRAINING LIQUID STOOL. SOUSA WITH CL YELLOW URINE.
--- NOTE | 2019-06-24 10:00 | NUR ---
EDIE DOTOMÁSOFF REPLACED AND INSERTED TO 65CM. DR. SANTANA LOOKED AT XRAY AND CONFIRMED PLACEMENT. OK TO GIVE MEDS, BUT MD STILL DECIDING ON WHETHER OR NOT TO RESTART TUBE FEEDS. PT REMAINS SEDATED, TITRATING PRECEDEX DOWN TOLERATED.
--- NOTE | 2019-06-24 13:17 | NUR ---
REASSESSMENT PT HAS BEEN RESTING MOSTLY QUIET SINCE HIS AGITATION THIS MORNING. PRECEDEX HAS BEEN TITRATED DOWN TO 0.1MCG/KG/HR AND HE IS STARTING TO WAKE UP MORE. REMAINS IN RESTRAINTS TO KEEP HIM FROM PULLING LINES AND TELE OFF. DOBHOFF REPLACED AND TUBE FEEDING RESTARTED PER ORDERS. RECTAL TUBE CONTINUES WITH LIQUID STOOL. SOUSA DRAINING CL YELLOW URINE. SPOKE WT PT'S FRIEND HEMALATHA, AND GAVE UPDATE. CONTINUING TO MONITOR.
--- NOTE | 2019-06-24 17:48 | NUR ---
SHIFT SUMMARY; PT WOKE UP THIS AFTERNOON AND HAS BEEN MUCH MORE COMPLIANT BUT IS STILL CONFUSED AND STILL REACHES UP TO MESS WITH HIS DOBHOFF WHEN ARMS ARE UNTIED. PRECEDEX CONTINUES AT LOW DOSE TO HELP MAINTAIN PT'S COMPLIANCE SINCE HIS MOOD HAS BEEN VERY LABILE THE PAST COUPLE DAYS. VEST REMAINS ON WELL SINCE PT TENDS TO THROW HIS LEGS OVER THE EDGE OF THE BED TO TRY AND GET UP. ASSISTED PT WITH PHONE CALLS TO HIS FRIEND HEMALATHA AND SISTER LISANDRA. PT HAS BEEN MAINTAINING SPO2 GREATER THAN 90 ON RA SINCE PRECEDEX WAS TURNED DOWN. RECTAL TUBE WITH SMALL AMT OF LIQUID STOOL THIS SHIFT. SOUSA PRODUCING CL YELLOW URINE. CONTINUING TO MONITOR.
--- NOTE | 2019-06-24 21:11 | NUR ---
ASSUMED CARE OF PT, REPORT RCV'D FROM DUNCAN GOULD. PT ALERT TO SELF, KNOWS HE'S IN "[facility]", KNOWS THAT IT'S "MAY OR JUNE 2019". OCCASIONALLY PT BECOMES CONFUSED AND BELIEVES HE'S IN "[place]" AT "THE HOUSE". PT COOPERATIVE WITH CARE, ABLE TO WEAKLY ASSIST WITH REPOSITIONING. BILATERAL SOFT WRIST RESTRAINTS AND ADA IN PLACE TO PREVENT UNSAFE AMBULATION AND PULLING AT LINES/TUBES. LUNG SOUNDS CLEAR-DIM T/O, SATS IN MID 90'S ON RA. HR IN 70'S, NSR. PIVOT 1.5 INCREASED TO GOAL RATE OF 40 ML/HR WITH 200 ML Q4 FLUSH, DOBHOFF IN PLACE. RECTAL TUBE PATENT AND DRAINING TO GRAVITY BROWN STOOL. PT REQUESTING WATER, REMINDED THAT HE NEEDS APPROVAL FROM SPEECH THERAPY BEFORE HE CAN HAVE WATER. GIVEN MOUTH MOISTURIZER AND PERFORMED ORAL CARE. SOUSA PATENT AND DRAINING PALE YELLOW URINE. COCCYX APPEARS VERY MINIMALLY RED, APPLIED BARRIER CREAM. PRECEDEX GTT @ 0.2 MCG/KG/HR. D5 @ 100 ML/HR. SEE FULL SHIFT ASSESSMENT.
--- NOTE | 2019-06-25 02:31 | NUR ---
WHILE ATTEMPTING TO REPOSITION PT, PT BEGAN YELLING AT TRAVEL RN INSISTING THAT SHE WAS "TRYING TO KILL HIM", PT ATTEMPTED TO KICK TRAVEL RN. VERBALLY REDIRECTED PT AND WARNED HIM THAT HE WOULD REQUIRE RESTRAINTS ON HIS LEGS IF HE CONTINUED TO KICK. REORIENTED PATIENT, PATIENT APOLOGIZED PROFUSELY STATING THAT HE BELIEVED TRAVEL RN WAS "SOMEONE ELSE". PT AGITATED. PRECEDEX INCREASED.
[2019-06-25 04:43] LABS: BASOPHILS ABSOLUTE AUTO 0.07 K/mm3 (0.00-0.23); BASOPHILS PERCENT AUTO 1 % (0-2); EOSINOPHILS ABSOLUTE AUTO 0.44 K/mm3 (0.00-0.68); EOSINOPHILS PERCENT AUTO 4 % (0-6); Hematocrit 33.5 % (37.0-53.0); IMMATURE GRAN ABSOLUTE AUTO 0.07 K/mm3 (0.00-0.10); IMMATURE GRAN PERCENT AUTO 1 % (0-1); LYMPHOCYTES ABSOLUTE AUTO 2.38 K/mm3 (0.84-5.20); LYMPHOCYTES PERCENT AUTO 21 % (21-46); MONOCYTES ABSOLUTE AUTO 0.48 K/mm3 (0.16-1.47); MONOCYTES PERCENT AUTO 4 % (4-13); Mean Corpuscular HGB 31.7 pg (26.0-34.0); Mean Corpuscular HGB Conc 32.8 g/dL (31.5-36.5); Mean Corpuscular Volume 97 fL (80-100); Mean Platelet Volume 11.4 fL (9.1-12.4); NEUTROPHILS ABSOLUTE AUTO 7.85 K/mm3 (1.96-9.15); NEUTROPHILS PERCENT AUTO 70 % (41-73); Platelet Count 393 K/mm3 (150-400); RDW Coefficient Variation 13.6 % (11.7-14.2); RDW Standard Deviation 48.4 fL (35.1-46.3); Red Blood Cell Count 3.47 M/mm3 (4.30-5.90); White Blood Cell Count 11.29 K/mm3 (4.00-11.30)
[2019-06-25 05:02] LABS: Anion Gap 6 mmol/L (6-16); Blood Urea Nitrogen 18 mg/dL (8-24); Bun/Creatinine Ratio 14.8 (12.0-20.0); CO2, Blood 22 mmol/L (21-32); Calcium, Blood 8.1 mg/dL (8.5-10.1); Chloride, Blood 120 mmol/L (98-108); Creatinine, Blood 1.22 mg/dL (0.60-1.20); Glomerular Filtration Rate >60 (60-); Glucose, Blood 152 mg/dL (70-99); Magnesium, Blood 1.7 mg/dL (1.6-2.4); Phosphorus, Blood 2.7 mg/dL (2.5-4.9); Potassium, Blood 3.3 mmol/L (3.5-5.5); Sodium, Blood 148 mmol/L (136-145)
--- NOTE | 2019-06-25 06:22 | NUR ---
SHIFT SUMMARY PT BEHAVIOR REMAINS LABILE. PRECEDEX CURRENTLY AT 0.7 MCG/KG/HR PT IS KICKING BLANKETS OFF OF BED AND REFUSING REPOSITIONING, PT SCOOTING FAR DOWN IN BED AND KICKING FEET/LEGS OVER SIDE-RAIL PT YELLING FOR HIS "ONE PHONE CALL", PT REORIENTED AND REASSURED THAT HE CAN MAKE A PHONE CALL WHEN HIS BEHAVIOR IS LESS AGGRESSIVE. BILATERAL SOFT WRIST RESTRAINTS AND ADA VEST IN PLACE. PT HAS CALL LIGHT WITHIN REACH AND IS ABLE TO APPROPRIATELY USE NEEDED. JOLEEN PICC IS POSITIONAL AND DOES NOT DRAW, CHARGE NURSE NOTIFIED-WILL LET PICC NURSE KNOW. SEE PREVIOUS NOTES FROM THIS SHIFT. WILL REPORT TO DAYSHIFT NURSE.
--- NOTE | 2019-06-25 07:00 | NUR ---
REC'D BEDSIDE REPORT FROM DUNCAN FARLEY AND AM NOW ASSUMING CARE OF THIS PT.
--- NOTE | 2019-06-25 08:00 | NUR ---
PT COMBATIVE: ST DA AND CLAUDIA-OFFICE NURSE HERE TO WORK WITH PT. PT IS CURRENTLY COMBATIVE AND WILL NOT ALLOW STAFF TO REPOSITION PT TO WORK WITH SPEECH THERAPY AND IT GRABBING/PINCHING/KICKING STAFF. PT ALSO CONSTANTLY PULLING AT RECTAL TUBE AND SOUSA CATHETER WITH FEET.
--- NOTE | 2019-06-25 08:29 | NUR ---
PT PLACED IN BILATERAL FT RESTRAINTS, PT CONTINUES TO PULL AT RECTAL TUBE/SOUSA CATHETER.
--- NOTE | 2019-06-25 09:07 | NUR ---
DR GONZALES IN TO ASSESS PT/PT UPDATE: DISCUSSED PT'S CASE WITH DR GONZALES, SEE NEW ORDERS. WILL START TO WEAN PRECEDEX AND ADD OLANZIPINE. PT PULLED DOBHOFF OUT WHILE BEING CLEANED UP. SPEECH IS GOING TO ATTEMPT TO WORK WITH PT AGAIN.
--- NOTE | 2019-06-25 16:02 | NUR ---
SHIFT SUMMARY: PT IS ALERT AND MORE COOPERATIVE IN COMPARISON WITH THIS AM. PT CONTINUES TO STATE HE IS IN "[place]," HOWEVER, UNABLE TO STATE WHAT FACILITY HE IS IN. PT CONTINUES TO HAVE NON-SENSICAL SENTENCES. PT APPEARS MORE ALERT AND LUCID SINCE WEANING OFF PRECEDEX AND STARTING ZYPREXA. PT ATTEMPTED TO WORK WITH SPEECH THIS AM, HOWEVER, UNABLE TO RETAIN INFORMATION AND FOLLOW DIRECTIONS ENOUGH TO BE CLEARED TO EAT/DRINK. PT CAN DO CRUSHED MEDS IN APPLESAUCE. LUNGS REMAIN CLEAR BUT DIMINISHED T/O BILATERALLY, BASES MORESO, THAN UPPER LOBES. HR REGULAR, SR 70'S RANGE. PT WITH PICC LINE TO RT UA WITH D5W @ 100ML/HR. PT STARTED ON LARGE DOSES OF THIAMINE TODAY. ABD SOFT/ROUND/NON-TENDER. BT'S HYPOACTIVE X 4 QAUDS. PT IS EAGER TO BE ABLE TO EAT AGAIN. SOUSA CATH PATENT, AND DRAINING TO GRAVITY. RECTAL TUBE CONTINUES TO DRAIN LIQUID BROWN STOOL.
--- NOTE | 2019-06-25 17:34 | NUR ---
PT UPDATE: PT CALLED SISTER AND SISTER IN TURN CALLED UNIT AND REPORTED SHE NEEDS TO HAVE POWER TO MAKE PT'S MEDICAL DECISIONS AND ACCESS BANK ACCOUNTS TO PAY PT'S BILLS. PT ALSO TOLD HER, THAT HIS ROOMMATES WERE AT HOME STEALING HIS BELONGINGS. SISTER SENT TO LEAVE MESSAGE WITH PALLATIVE CARE, THEY HAVE BEEN IN CONTACT RE: THIS PT AND HIS ADVANCE DIRECTIVE.
--- NOTE | 2019-06-25 20:49 | NUR ---
ASSUMED CARE OF PT, REPORT RCV'D FROM DUNCAN PATINO. PT ALERT, ORIENTED WITH PERIODS OF CONFUSION AND SPEAKING GIBBERISH. PT COOPERATIVE WITH CARE AND ABLE TO APPROPRIATE ANSWER QUESTIONS REGARDING HEALTH HISTORY AND ALLERGIES. PT REMAINS IN ADA VEST D/T ATTEMPTS TO UNSAFELY AMBULATE, WEAKNESS, AND CONFUSION. RECTAL TUBE AND SOUSA PATENT AND DRAINING TO GRAVITY. PT ABLE TO SWALLOW NIGHTLY MEDS WITH APPLESAUCE, NO DIFFICULTY SWALLOWING. D5 @100 ML/HR. SEE FULL SHIFT ASSESSMENT
--- NOTE | 2019-06-26 02:34 | NUR ---
PT SLEPT FOR APPROXIMATELY 1 HOUR. PT CONTINUES TO PULL BLOOD PRESSURE CUFF AND LEADS OFF, SCOOTS DOWN TO THE END OF THE BED AND THROWS LEGS OFF RIGHT SIDE, ATTEMPTS TO PULL SOUSA AND RECTAL TUBE OUT. PT IS REDIRECTABLE AND COOPERATIVE BUT CONTINUES TO DISPLAY THE SAME BEHAVIOR. PT REQUESTING "CONSULT FROM SPECIALIST" AND HIS "SHARPLES MACHINE OPERATOR" HE FEELS HE IS BEING HELD "AGAINST HIS WILL". PT ENCOURAGED TO SPEAK WITH PHYSICIAN REGARDING HIS CONCERNS IN THE MORNING.
[2019-06-26 03:54] LABS: BASOPHILS ABSOLUTE AUTO 0.08 K/mm3 (0.00-0.23); BASOPHILS PERCENT AUTO 1 % (0-2); EOSINOPHILS ABSOLUTE AUTO 0.44 K/mm3 (0.00-0.68); EOSINOPHILS PERCENT AUTO 4 % (0-6); Hematocrit 34.8 % (37.0-53.0); Hemoglobin 11.7 g/dL (13.5-17.5); IMMATURE GRAN PERCENT AUTO 1 % (0-1); LYMPHOCYTES ABSOLUTE AUTO 2.31 K/mm3 (0.84-5.20); LYMPHOCYTES PERCENT AUTO 20 % (21-46); MONOCYTES ABSOLUTE AUTO 0.69 K/mm3 (0.16-1.47); MONOCYTES PERCENT AUTO 6 % (4-13); Mean Corpuscular HGB 31.7 pg (26.0-34.0); Mean Corpuscular HGB Conc 33.6 g/dL (31.5-36.5); Mean Platelet Volume 10.9 fL (9.1-12.4); NEUTROPHILS ABSOLUTE AUTO 8.14 K/mm3 (1.96-9.15); NEUTROPHILS PERCENT AUTO 69 % (41-73); Platelet Count 449 K/mm3 (150-400); RDW Coefficient Variation 13.5 % (11.7-14.2); RDW Standard Deviation 46.2 fL (35.1-46.3); Red Blood Cell Count 3.69 M/mm3 (4.30-5.90); White Blood Cell Count 11.76 K/mm3 (4.00-11.30)
[2019-06-26 03:56] LABS: Mean Corpuscular Volume 94 fL (80-100)
[2019-06-26 04:12] LABS: Anion Gap 10 mmol/L (6-16); Blood Urea Nitrogen 11 mg/dL (8-24); Bun/Creatinine Ratio 9.5 (12.0-20.0); CO2, Blood 21 mmol/L (21-32); Calcium, Blood 8.8 mg/dL (8.5-10.1); Chloride, Blood 118 mmol/L (98-108); Creatinine, Blood 1.16 mg/dL (0.60-1.20); Glomerular Filtration Rate >60 (60-); Glucose, Blood 151 mg/dL (70-99); Potassium, Blood 3.1 mmol/L (3.5-5.5); Sodium, Blood 149 mmol/L (136-145)
--- NOTE | 2019-06-26 05:57 | NUR ---
SHIFT SUMMARY PT'S MOOD AND BEHAVIOR REMAINS LABILE, WITH PERIODS OF PARANOIA. NO AGGRESSIVE BEHAVIOR AND PT REMAINS REDIRECTABLE BUT FORGETFUL. PT MEDICATED WITH ATIVAN ON 2 OCCASIONS WITH NO NOTICABLE IMPROVEMENT. PT SLEPT VERY LITTLE OVERNIGHT, CONTINUES TO PULL LEADS/CORDS AND BLOOD PRESSURE CUFF OFF, SLIDES DOWN IN BED AND THROWS LEGS OFF THE BED. PT REMAINS IN ADA VEST TO DISCOURAGE UNSAFE AMBULATION. BLOOD PRESSURE HAS BEEN LABILE WITH MANY HYPERTENSIVE EPISODES, PT REFUSES TO REMAIN STILL DURING BLOOD PRESSURE CHECK. TREATED PER EMAR FOR HYPERTENSIVE EPISODES. RECTAL TUBE AND SOUSA PATENT AND DRAINING. 2400 ML URINARY OUTPUT. PT ABLE TO TAKE MEDICATIONS IN APPLESAUCE WITH NO DIFFICULTY. WILL REPORT TO DAYSHIFT NURSE.
--- NOTE | 2019-06-26 08:00 | NUR ---
Received report from Sami SONG. Patient sitting sideways in bed when entering and strainghten him up and he quickly went other way. called THERAPEUTIC RECREATION DIRECTOR and slid him up and elevated lower part of bed. He is quick to want to talk but has alot of word salad and is able to put short sentences to gether. He is on RA and sats 98%. He has PICC line in [facility], dressinging intact and site WNL's and is having hared time drawing and intermitent infusion problems. He has D5W at 100 and intermitenr piggyback potassium.. he has 16Fr Pate draining to gravity and rectal tube in place. He has been pulling and pate and rectal tube and have constant reminders not to play with. He has pulled off irrigation port and taped over hole. He MAEW with poor fine motor . He is in mynor to protect him from falling from bed.
--- NOTE | 2019-06-26 10:50 | NUR ---
Patient has ST eval and did better than yesterday but remains NPO, but is allowed crushed meds with applesauce with close sup;ervision and swallow reminders. OT came at 1030 and got up in chair. He has several ongoing runs of SVT, the first one at o830 which medicated with Hydralizine and ativan and brought him down to 105, the second one [id number] and gave 5mg Metoprolol IV per Dr Sorenson and at 0915 gave 20mg Diltiazem. All SVT rates were 150-160's. he is currently 120's and Dr Sniha aware and wrote for new Metoprolol orders and some mag with follow labs at 1400.
--- NOTE | 2019-06-26 11:28 | NUR ---
Pt up in chair, nursing working with intesivist on controling svt. Pt attemtps to trak conversation but gets frustrated and distraught. He is able to discuss more of his needs but with great difficulty. He has expressed concern over people getting into his band account. His sister keshawn is searching for information to check on his account she has POA and we have it on record. pt spoke with sister and gave her his social security nurmber. Spoke with pt advocate for assistance and she contacted [employer]. Sister is going to ask bank to flag his account for monitoring of unusual access.
--- NOTE | 2019-06-26 13:30 | NUR ---
Patient's HR in the 90-100's and has been up in chair for a couple hours and just placed back in chair. Sats on RA remain in the high 90's. he is very anxious to go home and does not have clear understanding why he can not leave regardless of the amount of times explained.
[2019-06-26 14:33] LABS: Magnesium, Blood 2.1 mg/dL (1.6-2.4); Potassium, Blood 3.4 mmol/L (3.5-5.5)
--- NOTE | 2019-06-26 16:00 | NUR ---
ASSUMED CARE REPORT RECEIVED FROM DUNCAN HARDING. PT SITTING IN BED, PUTTING HIS LEGS OUT OF THE BED TRYING TO SIT UP, VEST ON. PT ASKED TFOR A RIDE TO GO HOME. EXPLAINED THAT PT NEEDS TO STAY ANOTHER NIGHT AT LEAST SO HE CAN GET STRONGER. PT SAYS HE REMEMBERS THIS NURSE FROM 2 DAYS AGO. LUNGS CLEAR, RA. SR WITH HR IN THE 80S, BP STABLE. CPN TO START TONIGHT. SOUSA AND RECTAL TUBE IN PLACE. CONTINUE TO MONITOR.
--- NOTE | 2019-06-26 18:10 | NUR ---
SHIFT SUMMARY PT CONTINUED TO BE RESTLESS FOR THE REST OF THE SHIFT WANTING TO GO OUT AND SMOKE AND GET A DRINK. PT FINALLY RESTED AROUND 1730. PT TOOK MEDS WITH APPLESAUCE WITHOUT SIGNS OF ASPIRATION. CPN STARTED AND D5 STOPPED PER ORDERS. CONTINUING TO MONITOR.
--- NOTE | 2019-06-26 19:15 | NUR ---
ASSUME CARE: REPORT RECIEVED FROM ANA, OFF GOING RN. MONITOR INTACT SHOWING SINUS RHYTHM HEART RATE 80'S. SLEEPING AROUSES TO VERBAL STIMULI HOWEVER RETURNS TO SLEEP IMMEDIATLY. LUNG SOUNDS DECREASED IN THE BASES RESPIRATIONS REGULAR AND EASY AT REST. SPO2 94-97%. ABDOMEN SOFT WITH BOWEL SOUNDS FOUR QUADS. RECTAL TUBE INTACT, PATENT WITH BROWN LIQUID RETURN. SOUSA PATENT DRAINING JAZMIN URINE. AVENDAÑO WELL IN BED REPOSTIONS SELF AROUND IN THE BED. SKIN W/D PEDAL PULSES PRESENT CONTINUE TO MONITOR AND REPORT CHANGE IN PATIENT CONDITION.
[2019-06-27 04:09] LABS: Anion Gap 7 mmol/L (6-16); Blood Urea Nitrogen 15 mg/dL (8-24); Bun/Creatinine Ratio 13.5 (12.0-20.0); CO2, Blood 22 mmol/L (21-32); Chloride, Blood 120 mmol/L (98-108); Creatinine, Blood 1.11 mg/dL (0.60-1.20); Glomerular Filtration Rate >60 (60-); Glucose, Blood 155 mg/dL (70-99); Magnesium, Blood 1.9 mg/dL (1.6-2.4); Phosphorus, Blood 3.7 mg/dL (2.5-4.9); Potassium, Blood 3.9 mmol/L (3.5-5.5); Sodium, Blood 149 mmol/L (136-145); Triglycerides 186 mg/dL (30-160)
--- NOTE | 2019-06-27 06:30 | NUR ---
SHIFT SUMMARY; RESTS QUIETLY WHEN UNDISTURBED. MONITOR INTACT SHOWING SINUS RHYTHM NO EPISODES OF SVT THIS SHIFT. PERIODS OF CONFUSION HOWEVER MORE ALERT AND COOPERATIVE. EASILY REDIRECTED. LUNG SOUNDS CLEAR UPPER LOBES. RESPIRATIONS REGULAR AND EASY. SPO2 95-97% ABDOMEN SOFT WITH BOWEL SOUNDS FOUR QUADS.RECTAL TUBE INTACT WITH LIQUID BROWN STOOL. SOUSA PATENT DRAINING JAZMIN URINE. MOVES SELF ABOUT IN THE BED. CONTINUE TO MONITOR AND REPORT CHANGE IN PATIENT CONDITION.
--- NOTE | 2019-06-27 07:55 | NUR ---
ASSUMED CARE / DR HART: REPORT RECEIVED FROM CARINE David RN. ASSUMED CARE OF THIS PT AT APPROX 0700. ON ASSESSMENT, PT IS A&O TO SELF & FOLLOWING DIRECTION. HIS COGNITION IS LABILE, AT TIMES HE IS HAVING RELEVANT CONVERSATIONS R/T CURRENT EVENTS, & AT OTHER TIMES HE NEEDS REMINDED OF LOCATION, STAFF MEMBERS, ETC. LS ARE CLEAR T/O, PT ON RA W/ O2 SATS > 92%. MONITOR SHOWS SR-ST W/ HR 90-100s, OCCASIONAL PVCs. RECTAL TUBE PATENT/ DRAINING BROWN LIQUID STLS. SOUSA PATENT/ DRAINING. SKIN CONDITION OVERALL CDI, FRAGILE. PT REPOSITIONS SELF WELL IN BED. PROVIDER AT BEDSIDE TO EVAL PT. HE STS NO CHANGES AT THIS TIME. WILL CONTINUE TO MONITOR & UPDATE NEEDED.
--- NOTE | 2019-06-27 09:30 | NUR ---
PICC LINE: ROMAN & RED LUMENS ARE NO LONGER FLUSHING & PICC LINE CONTINUES TO NOT DRAW BLOOD THROUGH ANY LUMEN. DISCUSSED THIS ISSUE W/ PICC RN, JOLLY Duran. SHE RECOMMENDS USING CATHFLO. CALL TO DR HART TO NOTIFY & HE STS OKAY TO USE CATHFLO. ORDERS PLACED.
--- NOTE | 2019-06-27 18:37 | NUR ---
SHIFT SUMMARY: NO ACUTE CHANGES SINCE PRIOR UPDATES. PT REMAINS A&O, PLEASANT & COOPERATIVE. HE TOLERATED WORKING W/ PHYSICAL THERAPY WELL THIS AFTERNOON & HAS BEEN SITTING UP IN THE CHAIR FOR APPROX 2 HRS SINCE THAT TIME. HE WAS CLEARED FOR A DIET BY SPEECH THERAPY & IS TOLERATING PO INTAKE WELL. LS ARE CLEAR T/O, PT ON RA W/ O2 SATS > 92%. MONITOR SHOWS SR-ST W/ HR 90-100s, OCCASIONAL PVCs, HTN W/ MEDS PER EMAR. RECTAL TUBE IS PATENT/ DRAINING BROWN LIQUID STLS. SOUSA PATENT/ DRAINING DARK YELLOW URINE. SKIN CONDITION OVERALL UNCHANGED. PICC DRESSING CHANGED BY JOLLY Duran RN, THIS EVENING. WILL CONTINUE TO MONITOR & REPORT OFF TO ONCOMING RN.
--- NOTE | 2019-06-27 22:12 | NUR ---
ASSUMPTION OF CARE ASSUMED CARE OF PT @ 1900, PT UP IN CHAIR, ORIENTED TO SELF, LOCATION, AND FOLLOWING DIRECTIONS, PT SLOW TO RESPOND BUT WITH CLEAR SPEECH. O2 SATURATIONS MAINTAINED>90% ON RA, MONITOR SHOWS SINUS RHYTHM WITH HR 90'S-105, BP STABLE. PICC LINE TO JOLEEN, REDNESS NOTED AROUND INSERTION SITE. PT TOLERATING PO INTAKE, FREQUENT REQUESTS FOR WATER. FOELY IN PLACE AND DRAINING, RECTAL TUBE IN PLACE AND DRAINING TO GRAVITY. PT BACK TO BED WITH WALKER AND GAIT BELT, 2 PERSON ASSIST. PT REPOSITIONS SELF IN BED BUT TIRES EASILY. CALL LIGHT WITHIN REACH.
--- NOTE | 2019-06-28 01:30 | NUR ---
PT TO ICU 11 VIA RONALD WITH ED RN. PT ALERT AND ORIENTED TO SELF, LOCATION, EVENT AND FOLLOWING DIRECTIONS. PT ON 5L PER NC TO MAINTAIN O2 SATURATIONS>90%, URESIL CHEST TUBE TO L ANTERIOR CHEST, VALVE FLUCTUATING WITH INSPIRATION/EXPIRATION, PLACED ON 20cm H20 SUCTION, NO AIR LEAK OR CREPITUS NOTED. PT DENIES SOB, STS FEELS MUCH BETTER, BUT IS HAVING DIFFICULTY TALKING IN FULL SENTENCES. PT DENIES ISSUES, STS HAS NOT HAD BM x4 DAYS WHICH IS UNUSUAL FOR HIM. PT DENIES GENERAL WEAKNESS BUT STS HE HAS NOT BEEN ACTIVE R/T ILLNESS FOR PAST 3-4 DAYS.
[2019-06-28 04:01] LABS: Anion Gap 5 mmol/L (6-16); Blood Urea Nitrogen 21 mg/dL (8-24); Bun/Creatinine Ratio 17.4 (12.0-20.0); CO2, Blood 24 mmol/L (21-32); Calcium, Blood 8.7 mg/dL (8.5-10.1); Chloride, Blood 115 mmol/L (98-108); Creatinine, Blood 1.21 mg/dL (0.60-1.20); Glomerular Filtration Rate >60 (60-); Glucose, Blood 233 mg/dL (70-99); Magnesium, Blood 1.5 mg/dL (1.6-2.4); Sodium, Blood 144 mmol/L (136-145)
--- NOTE | 2019-06-28 05:51 | NUR ---
CHEST TUBE DISPLACMENT UPON ASSESSMENT, NO CREPITOUS PRESENT, O2 SATURATIONS 97% ON 3L PER NC, PT DENIES SOB, TENDERNESS NOTED AROUND CHEST TUBE SITE. NO FLUCTUATION AT CHEST TUBE DIAPHRAGM, TEGADERM PLACED OVER CHEST TUBE DRESSING, STAT CXR ORDERED.
--- NOTE | 2019-06-28 07:29 | NUR ---
SHIFT SUMMARY PT RESTED WELL THIS SHIFT, REMAINS AROUSABLE AND ORIENTED TO SELF, LOCATION ([facility]), AND FOLLOWING DIRECTIONS. O2 SATURATIONS MAINTAINED>90% ON RA, MONITOR SHOWS SINUS RHYTHM WITH SOME ECTOPY/PVC'S TOWARDS END OF SHIFT, MORNING LABS SHOWED LOW MAGNESIUM, 2G REPLACEMENT INFUSED. PT HYPERTENSIVE T/O SHIFT, LABETALOL ORDERED, ADMINISTERED x2 THIS SHIFT (SEE MAR). PT TOLERATING PO INTAKE WELL, FREQUENT REQUESTS FOR WATER. RECTAL TUBE DC'D THIS SHIFT, ATTENDS IN PLACE, NO BM POST REMOVAL. SOUSA REMAINS IN PLACE. PT WATCHING TELEVISION IN BED, CALL LIGHT WITHIN REACH, REPORT GIVEN TO LISBETH SONG.
--- NOTE | 2019-06-28 08:00 | NUR ---
Shannon of Care: Care Assumed at 0700hr. Patient sitting upright in bed watching tv. Alert, oriented to self, but confused to place and reason for admission. Makes non-sencical statements, but remains calm and cooperative with staff. Sophy vest restraint in place as patient will attempt to stand without assistance, weak and unsteady on feet. Plan to get patient up to chair and to shower room this morning. Ate 100% of breakfast, tolerating nectar thick fluids without difficulty. PICC lines to JOLEEN patent and intact, infusing without difficulty. Simmons cath patent and intact, draining clear, yellow urine. Will continue to monitor.
--- NOTE | 2019-06-28 17:40 | NUR ---
review of pt with nursing. spoke with his sister today she is trying to navigate her brothers finance and help with his bills. she is hoping he will improve so she can get information from him. They are trying to settle their mothers estate. She found a will advised her to contact the civil attorney. Review of his medical needs and may need rehab. Also review of potential that he may never be the same. Keeping contact with her and some advanced care planning for his future care and decision needs if he becomes more frail.
--- NOTE | 2019-06-28 18:00 | NUR ---
Shift Summary: No significant changes throughout shift. Patient remains calm and cooperative with staff, but confused. Appears to forget he is in hospital setting and forgets his limitations. X2 attempt's to transfer without assistance, Sophy vest remains in place as patient is weak and unsteady on his feet. TPN d/c'd this evening per Dr. Sorenson, as patient has good apatite and is eating 1005 of meals. PICC line to JOLEEN arm remains patent and intact, infusing TKO. Simmons remains patent and intact, draining clear yellow urine. Transferred to chair x2 via 2-person moderate assist. Appears calm and comfortable at this time. Will continue to monitor until report to NOC shift RN.
--- NOTE | 2019-06-28 21:30 | NUR ---
PT RESTING IN BED. A/O TO PERSON. KNOWS HE IS IN [place] AND THE YEAR. PT HAS MOSTLY CONFUSED CONVERSATION THAT IS DIFFICULT TO FOLLOW. PLEASANT AND COOPERATIVE. IN ADA VEST DUE TO BEING IMPULSIVE. PT GOT UP TO BSC WITH 2 PERSON ASSIST TO BSC TO HAVE BM BUT ONLY HAD GAS. VERY WEAK LOWER EXTREMITIES. PT IS ABLE TO MOVE HIMSELF AROUND IN BED. WHEN TURNED TO SIDE HE WILL MOVE HIMSELF BACK TO HIS BACK. NO SIGN OF DISTRESS.
--- NOTE | 2019-06-29 00:30 | NUR ---
PT TRANSFERED TO PCU 9. REPORT GIVEN TO SMILEY SONG. NO ACUTE CHANGES.
[2019-06-29 04:27] LABS: Magnesium, Blood 1.7 mg/dL (1.6-2.4)
[2019-06-29 04:28] LABS: Anion Gap 6 mmol/L (6-16); Blood Urea Nitrogen 18 mg/dL (8-24); CO2, Blood 24 mmol/L (21-32); Calcium, Blood 9.1 mg/dL (8.5-10.1); Chloride, Blood 110 mmol/L (98-108); Glomerular Filtration Rate >60 (60-); Glucose, Blood 154 mg/dL (70-99); Phosphorus, Blood 4.2 mg/dL (2.5-4.9); Potassium, Blood 4.3 mmol/L (3.5-5.5); Sodium, Blood 140 mmol/L (136-145)
--- NOTE | 2019-06-29 04:56 | NUR ---
ASSUMED CARE OF PATIENT AT APPROXIMATELY 0030 FROM NEEL Johnson RN. TRANSFER FROM ICU. PATIENT SLID FROM STRETCHER TO STRETCHER. ADA IN PLACE DUE TO FALL RISK; PATIENT IMPULSIVE AT TIMES; WEAK. PATIENT PULLS AT LINES/TUBES AND ATTEMPTS TO STAND UP INDEPENDENTLY; PATIENT WEAK. PATIENT CONFUSED; MAKES ODDS STATEMENTS ABOUT BEING HOME. PATIENT ANXIOUS AT ONE POINT; MEDICATED PER EMAR FOR ANXIETY. PICC S/L. URINARY CATH DRAINING LARGE AMOUNTS OF URINE. PATIENT BLOOD PRESSURE ELEVATED; LAST SBP WAS 158. NO CHANGES TO NOTE ON SHIFT ASSESSMENT. NSR ON TELE; OXYGEN SATURATION ABOVE 90% ON ROOM AIR. PATIENT CURRENTLY RESTING IN BED; CALL LIGHT IN REACH; BED IN LOWEST POSISTION; BED ALARM ON; WILL CONTINUE TO MONITOR AND ASSESS UNTIL END OF SHIFT.
--- NOTE | 2019-06-29 17:28 | NUR ---
SHIFT SUMMARY PT ALERT AND ORIENTED THIS SHIFT WITH MOMENTS OF CONFUSION. PT AGITATED AT TIMES AND YELLING AT STAFF. VS STABLE. O2 SATS REMAIN ABOVE 90% ON RA. HR NSR TO SINUS TACH. PT DENIES ANY PAIN. PICC LINE TO RIGHT UPPER ARM S/L. PT IN ADA VEST FOR SAFETY. PT UNSTEADY ON HIS FEET. PT IS 2 PERSON TX WITH GATE BELT. ORDERS CHANGED THIS AM TO MEDICAL STATUS. SOUSA PATENT AND DRAINING. BLADDER TRAINING STARTED THIS AFTERNOON IN ORDER TO TAKE OUT SOUSA. REPORT GIVEN TO MEDICAL FLOOR RN. PT TO BE TAKEN UP BY BED.
--- NOTE | 2019-06-29 18:18 | NUR ---
PATIENT TRANSFER PCU TRANSFER THIS EVENING. PATIENT DENIES PAIN, NAUSEA, AND SHORTNESS OF BREATH. PATIENT SETTLED INTO ROOM. CALL LIGHT IN REACH.
--- NOTE | 2019-06-29 19:05 | NUR ---
ASSUMED CARE. ROYAL IS SITTING UP IN THE CHAIR. ADJUSTED THE RESTRAINTS SO HE CAN SIT UP BETTER. HE WAS MESSING WITH THE CALL LIGHT TRYING TO MAKE A PHONE CALL. GAVE HIM THE PHONE INSTEAD. HE COULD NOT REMEMBER THE NUMBER AND PUT IT DOWN. HE IS ALERT AND ORIENTED TO SELF. UNABLE TO STATE OTHER ORIENTATION. DOES FOLLOW SOME DIRECTIONS. DENIES ANY PAIN OR DISCOMFORT. LUNG SOUNDS CLEAR. RESP EVEN AND UNLABORED. HR SINUS IN THE 90'S. FIXED TELEMETRY SICKERS. DENIES ANY CHEST PAIN OR SOB. STATES "IM FINE." WILL CONTINUE TO MONITOR. CAMERA IS ON.
--- NOTE | 2019-06-29 22:12 | NUR ---
ROYAL HIS SITTING UP IN HIS BED, THEN HE LAID IT DOWN. STATES HE IS FEELING VERY ANXIOUS AND CAN NOT SLEEP. ASKING FOR THE RESTRAINTS TO BE REMOVED OR LOOSENED UP. HE PROMISES THAT HE WILL NOT TRY TO GET UP THAT HE WANTS OUT OF HERE, SO HE WILL BE GOOD. DISCUSSED WHY THE RESTRAINTS WERE ON, INSTRUCTING HIM ABOUT HIS SAFETY. HE SAID HE UNDERSTOOD. JUST WANTED SOMETHING TO HELP HIM FEEL BETTTER. DISCUSSED WAYS OF CALMING DOWN AND IF THEY DID NOT WORK THEN WE CAN GIVE ATIVAN.
--- NOTE | 2019-06-29 23:09 | NUR ---
GAVE 1MG OF ATIVAN IV. CHECKED VEST STRAPS AND HELPED TO PULL HIM UP IN BED. WILL RECHECK TO SEE IF IT HELPED WITH HIS ANXIOUSNESS.
--- NOTE | 2019-06-29 23:59 | NUR ---
DISCONNECTED IV. SL PILL LINE. ROYAL STATES HE FEELS BETTER NOT SO ANXIOUS, AND FEELS HE CAN SLEEP NOW. VEST STILL IN PLACE WILL CONTINUE TO MONITOR. BED ALARM IS ON.
--- NOTE | 2019-06-30 03:32 | NUR ---
ASSUMED CARE RECEIVED REPORT FROM DUNCAN GAINES. TOOK OVER CARE OF PT. SITTING UP IN BED AT THIS TIME, STATING HE NEEDS TO GET UP. RE-ORIENTED PT TO TIME. PT RE-DIRECTABLE. NO S/S ACUTE DISTRESS NOTED, RESPIRATIONS EVEN AND UNLABORED. REQUESTING ICE WATER, WIRE TECHNICIAN BROUGHT TO PT. DENIES ANY OTHER NEEDS AT THIS TIME. ADA VEST IN PLACE, CALL LIGHT POSSESSIONS IN REACH, BED IN LOWEST POSITION WITH ALARM ON. WILL CONTINUE TO MONITOR.
--- NOTE | 2019-06-30 06:51 | NUR ---
SHIFT SUMMARY PT RESTING COMFORTABLY AT THIS TIME, NO S/S ACUTE DISTRESS NOTED, NO ACUTE CHANGES NOTED FROM SHIFT ASSESSMENT. PT WAS MONITORED EVERY 1-2 HOURS WITH NEEDS MET. DENIES NEEDS AT THIS TIME. ADA VEST REMAINS IN PLACE AT THIS TIME. CALL LIGHT, POSSESSIONS IN REACH, BED IN LOWEST POSITION WITH ALARM ON. REPORT GIVEN TO DAY SHIFT RN.
[2019-06-30 07:05] LABS: BASOPHILS ABSOLUTE AUTO 0.09 K/mm3 (0.00-0.23); BASOPHILS PERCENT AUTO 1 % (0-2); EOSINOPHILS ABSOLUTE AUTO 0.34 K/mm3 (0.00-0.68); EOSINOPHILS PERCENT AUTO 4 % (0-6); Hematocrit 38.4 % (37.0-53.0); Hemoglobin 12.9 g/dL (13.5-17.5); IMMATURE GRAN ABSOLUTE AUTO 0.08 K/mm3 (0.00-0.10); IMMATURE GRAN PERCENT AUTO 1 % (0-1); LYMPHOCYTES ABSOLUTE AUTO 2.96 K/mm3 (0.84-5.20); LYMPHOCYTES PERCENT AUTO 32 % (21-46); MONOCYTES ABSOLUTE AUTO 0.68 K/mm3 (0.16-1.47); MONOCYTES PERCENT AUTO 7 % (4-13); Mean Corpuscular HGB 31.4 pg (26.0-34.0); Mean Corpuscular HGB Conc 33.6 g/dL (31.5-36.5); Mean Corpuscular Volume 93 fL (80-100); NEUTROPHILS ABSOLUTE AUTO 5.19 K/mm3 (1.96-9.15); NEUTROPHILS PERCENT AUTO 56 % (41-73); RDW Coefficient Variation 13.6 % (11.7-14.2); RDW Standard Deviation 46.2 fL (35.1-46.3); Red Blood Cell Count 4.11 M/mm3 (4.30-5.90); White Blood Cell Count 9.34 K/mm3 (4.00-11.30)
[2019-06-30 07:19] LABS: Anion Gap 10 mmol/L (6-16); Blood Urea Nitrogen 17 mg/dL (8-24); Bun/Creatinine Ratio 13.8 (12.0-20.0); CO2, Blood 23 mmol/L (21-32); Calcium, Blood 9.2 mg/dL (8.5-10.1); Chloride, Blood 108 mmol/L (98-108); Creatinine, Blood 1.23 mg/dL (0.60-1.20); Glomerular Filtration Rate >60 (60-); Glucose, Blood 135 mg/dL (70-99); Potassium, Blood 4.1 mmol/L (3.5-5.5); Sodium, Blood 141 mmol/L (136-145)
[2019-06-30 07:29] LABS: Mean Platelet Volume 11.5 fL (9.1-12.4); Platelet Count 278 K/mm3 (150-400)
--- NOTE | 2019-06-30 11:44 | NUR ---
tried to wake the patient to give him his dose of cardizem. patient is very somnolent, will try again when lunch trays are here and try to get patient in the chair at that time as well.
--- NOTE | 2019-06-30 18:21 | NUR ---
SHIFT SUMMARY PATIENT HAS BEEN ALERT TO SELF AND PLACE. HE HAS BEEN COOPERATIVE WITH STAFF. NO NEED FOR HIS ADA AT THIS TIME. HE IS ONE PERSON ASSIST TO THE BATHROOM AND BACK. HIS HEART RATE WAS REPORTED TO BE 143 AROUND 1530. HE WAS GIVEN HIS NEW DOSE OF CARDIZEM. HIS HEART RATE IS SUSTAINING AROUND 104 NOW. HE IS PLEASANT. HE HAD HIS DINNER, AND HAS EATEN TWO OF THREE MEALS. HE WORKED WITH PHYSICAL THERAPY AND OCCUPATIONAL THERAPY. WELL SPEECH THERAPY.
--- NOTE | 2019-06-30 18:45 | NUR ---
ASSUMED CARE RECEIVED REPORT FROM DUNCAN BERNAL. ASSUMED CARE OF PT. RESTING COMFORTABLY AT THIS TIME, NO S/S ACUTE DISTRESS. PT UP IN CHAIR WATCHING TV. DENIES NEEDS AT THIS TIME, CALL LIGHT, POSSESSIONS IN REACH, CHAIR ALARM ON. REMINDED TO CALL WITH NEEDS. WILL CONTINUE TO MONITOR.
--- NOTE | 2019-06-30 21:27 | NUR ---
2126 SPOKE TO LORRAINE FINE REGARDING PT'S C/O ZARATE. ORDERS ENTERED INTO [employer].
--- NOTE | 2019-07-01 01:44 | NUR ---
[address] BRODERICK TO CLARIFY PT MEDICATION ORDER FOR DOCUSATE SODIUM. ORDERS RECEIVED AND ENTERED INTO [employer].
--- NOTE | 2019-07-01 07:29 | NUR ---
SHIFT SUMMARY PT SITTING UP IN CHAIR, NO S/S ACUTE DISTRESS NOTED. WAS MONITORED EVERY 1-2 HOURS WITH NEEDS MET, DENIES ANY NEEDS AT THIS TIME. NO ACUTE EVENTS NOTED T/O NIGHT. CALL LIGHT IN REACH, CHAIR ALARM ON. REPORT GIVEN TO DUNCAN JOHNSON.
--- NOTE | 2019-07-01 12:27 | NUR ---
TELE REMOVED AND RETURNED TO PCU PER DR KEENE. ORDERS ALSO GIVEN TO D/C PICC; LINE NOT PATENT. YELENA SONG NOTIFIED AND WILL D/C WHEN AVAILABLE.
--- NOTE | 2019-07-01 16:37 | NUR ---
PATIENT REMAINS IMPULSIVE AND JUMPS UP FROM CHAIR OR BED T/O THE SHIFT. PLEASANT WITH STAFF AND REDIRECTABLE. VITALS HAVE BEEN STABLE. NO COMPLAINTS OF PAIN OR DISCOMFORT. PICC LINE DISCONTINUED PER ORDERS. PATIENT IN ROOM RESTING AT THIS TIME. WILL CONTINUE TO MONITOR AND PROVIDE CARE NEEDED.
--- NOTE | 2019-07-02 05:45 | NUR ---
SHIFT SUMMARY- PT. A&O X2 WITH SOME CONFUSION. UNSTEADY GAIT, AMBULATES WITH 1 ASSIST AND WALKER. PT. HAD NO ACUTE CHANGES TO CONDITION. RESTED ON/OFF THIS SHIFT. NO APPARENT DISTRESS NOTED. DENIED ANY PAIN OR DISCOMFORT. CALL LIGHT WITHIN REACH, SIDE RAILS UP X3, AND BED ALARM ON. WILL CONT TO MONITOR.
--- NOTE | 2019-07-02 20:28 | NUR ---
verified remote camera momitoring with SUNNI Villegas.
--- NOTE | 2019-07-03 06:19 | NUR ---
SHIFT SUMMARY- NO ACUTE EVENTS OVERNIGHT. PT. HAD A RESTFUL NIGHT. A&O WITH INTERMITTENT CONFUSION. AMBULATES W/SBA. ABLE TO MAKE NEEDS KNOWN. C/O HEADACHE 2X. MEDICATED PER EMAR WITH GOOD EFFECT. PT. SITTING UP IN CHAIR, APPEARS COMFORTABLE. CALL LIGHT WITHIN REACH AND CHAIR ALARM IN PLACE. WILL CONT TO MONITOR.
[2019-07-03] MEDS ORDERED: OLAN10A PO (10:24)
[2019-07-03] MEDS ORDERED: ACET325 PO (10:24)
--- NOTE | 2019-07-03 13:15 | NUR ---
DISCHARGE INSTRUCTIONS COMPLETED AND DISCUSSED WITH PT EXPRESSING UNDERSTANDING. [facility]CR[facility]TS CALLED IN TO [facility] PER PT AND FRIENDS REQUEST. SPOKE WITH HEMALATHA, PTS FRIEND, ON THE PHONE AND ENCOURAGED THE FRIEND TO HELP PT TO PUT HIS PILLS IN PILL CONTAINERS. TO [facility] VIA W/C.
== END 2019-07-03 13:03 | disposition home health service (06) | DRG 871 ==
LOC: ER 16:21 → ICUE 19:46 → MEDS 19:46 → ICUW 19:46 → ERHOLD 19:46 → ICUE 22:10 → PCU 06-17 14:30 → ICUW 06-19 12:02 → PCU 06-29 00:32 → MEDS 06-29 18:04
PROVIDERS: Emergency Medicine; Family Medicine; Internal Medicine; Internal Medicine Critical Care Medicine; Internal Medicine Pulmonary Disease; Pharmacist; ADMIT Family Medicine
PROC: 02HV33Z Insertion of Infusion Device into Superior Vena Cava, Percutaneous Approach (ICD-10-PCS; principal; 2019-06-12)
PROC: 3E043XZ Introduction of Vasopressor into Central Vein, Percutaneous Approach (ICD-10-PCS; 2019-06-12)
PROC: 0BH17EZ Insertion of Endotracheal Airway into Trachea, Via Natural or Artificial Opening (ICD-10-PCS; 2019-06-14)
PROC: 5A1945Z Respiratory Ventilation, 24-96 Consecutive Hours (ICD-10-PCS; 2019-06-14)
DX: A41.9 Sepsis, unspecified organism (principal); J96.01 Acute respiratory failure with hypoxia; J96.02 Acute respiratory failure with hypercapnia; R65.21 Severe sepsis with septic shock; G93.41 Metabolic encephalopathy; I21.A1 Myocardial infarction type 2; F10.239 Alcohol dependence with withdrawal, unspecified; E87.1 Hypo-osmolality and hyponatremia; M62.82 Rhabdomyolysis; E87.0 Hyperosmolality and hypernatremia; N17.9 Acute kidney failure, unspecified; F10.27 Alcohol dependence with alcohol-induced persisting dementia; J98.11 Atelectasis; E83.52 Hypercalcemia; E86.0 Dehydration; I10 Essential (primary) hypertension; D47.3 Essential (hemorrhagic) thrombocythemia; E66.9 Obesity, unspecified; K21.9 Gastro-esophageal reflux disease without esophagitis; E83.39 Other disorders of phosphorus metabolism; Z78.1 Physical restraint status; Y90.0 Blood alcohol level of less than 20 mg/100 ml; Z68.29 Body mass index [BMI] 29.0-29.9, adult
CPT/HCPCS: 0097U; 31500; 31720; 36415; 36569; 36600; 51701; 51702; 62270; 70450; 71045; 71260; 74176; 74177; 80048; 80053; 80069; 80202; 81001; 82140; 82306; 82330; 82397; 82550; 82803; 82945; 82947; 83036; 83605; 83735; 83970; 84100; 84132; 84145; 84157; 84439; 84443; 84478; 84484; 85025; 85027; 85610; 87040; 87070; 87086; 87205; 87483; 89051; 92523; 92526; 92610; 93005; 93010; 93306; 94002; 94003; 96361-59; 96365-59; 96366-59; 96375-59; 96376-59; 97110; 97116; 97163; 97167; 97530; 97535; 99285-25; A9270; A9270-GY; C1751; C9113; G0480; J0282; J0360; J0696; J1265; J1650; J1815; J1940; J2060; J2543; J2560; J2704; J2997; J3010; J3360; J3370; J3411; J3475; J3480; J7030; J7042; J7050; J7060; J7070; J7120; Q9967